=== PATIENT | male | born 1950 | race Caucasian/White ===

== ENCOUNTER → 2019-01-30 | Outpatient (REF) | payer MEDICARE ==
[2019-01-30 11:30] LABS: BASO # 0.1 10^3/uL (0.0-0.2); BASO % 1.6 % (0.0-1.0); EOS # 0.3 10^3/uL (0.0-0.50); EOS % 3.9 % (0.0-3.0); HEMOGLOBIN 17.9 g/dl (13.5-17.5); LYMPH # 2.7 10^3/uL (1.5-4.5); LYMPH % 35.8 % (24.0-44.0); MEAN CORPUSCULAR HEMOGLOBIN 32.6 pg (27.0-33.0); MEAN CORPUSCULAR HGB CONC 34.4 g/dl (32.0-36.5); MEAN CORPUSCULAR VOLUME 94.7 fl (80.0-96.0); MONO # 0.5 10^3/uL (0.0-0.8); MONO % 6.7 % (0.0-5.0); NEUTROPHILS # 3.9 10^3/uL (1.8-7.7); NEUTROPHILS % 51.7 % (36.0-66.0); PLATELET COUNT, AUTOMATED 235 10^3/uL (150-450); RED BLOOD COUNT 5.49 10^6/uL (4.30-6.10); WHITE BLOOD COUNT 7.6 10^3/uL (4.0-10.0)
[2019-01-30 11:43] LABS: ALBUMIN 4.3 GM/DL (3.2-5.2); ALT/SGPT 21 U/L (12-78); BILIRUBIN,TOTAL 0.7 MG/DL (0.2-1.0); BLOOD UREA NITROGEN 9 MG/DL (7-18); CALCIUM LEVEL 9.5 MG/DL (8.8-10.2); CARBON DIOXIDE LEVEL 25 MEQ/L (21-32); CHLORIDE LEVEL 105 MEQ/L (98-107); CHOLESTEROL LEVEL 291 MG/DL (<200); CHOLESTEROL RISK RATIO 5.388 (<5); CREATININE FOR GFR 0.86 MG/DL (0.70-1.30); FREE T4 0.95 NG/DL (0.76-1.46); GLOMERULAR FILTRATION RATE > 60.0 (>49); GLUCOSE, FASTING 91 MG/DL (70-100); HDL CHOLESTEROL 54 MG/DL (>40); LDL CHOLESTEROL 212 MG/DL (<100); NON-HDL-C 237 MG/DL; POTASSIUM SERUM 4.5 MEQ/L (3.5-5.1); SODIUM LEVEL 138 MEQ/L (136-145); TOTAL PROTEIN 7.4 GM/DL (6.4-8.2); TRIGLYCERIDES LEVEL 125 MG/DL (<150)
== END ==
LOC: M SFHCCLAY 08:04
PROVIDERS: ATTEND Nurse Practitioner Family
DX: R03.0 Elevated blood-pressure reading, without diagnosis of hypertension (principal); E07.9 Disorder of thyroid, unspecified; E78.00 Pure hypercholesterolemia, unspecified

== ENCOUNTER → 2019-03-01 | Outpatient (CLI) | payer MEDICARE ==
--- NOTE | 2019-03-01 14:02 | REP ---
REASON: Tobacco abuse. PRIORS: None. As per the protocol, only lung window images were sent to the read station for interpretation. There is no evidence of an abnormal nodule, mass, or opacity. Grossly, the cardiomediastinal silhouette is within normal limits. Grossly, the imaged upper abdomen and imaged osseous structures are within normal limits. IMPRESSION: Lung RADS category 1. No abnormality. Electronically Signed by Kirill Thompson DO 03/01/2019 03:36 P
== END ==
LOC: M RAD 09:25
PROVIDERS: ATTEND Nurse Practitioner Family
DX: Z12.2 Encounter for screening for malignant neoplasm of respiratory organs (principal); F17.210 Nicotine dependence, cigarettes, uncomplicated; R20.2 Paresthesia of skin; R94.31 Abnormal electrocardiogram [ECG] [EKG]
CPT/HCPCS: 36415; 82607; 82746; 93306; G0297

== ENCOUNTER → 2019-03-01 | Outpatient (CLI) | payer MEDICARE ==
[2019-03-01 10:18] LABS: FOLATE 11.5 NG/ML
== END ==
LOC: M LAB 09:09
PROVIDERS: ATTEND Nurse Practitioner Family
DX: R20.2 Paresthesia of skin (principal)

== ENCOUNTER → 2019-03-01 | Outpatient (CLI) | payer MEDICARE ==
--- NOTE | 2019-03-02 19:04 | ECHO ---
DATE OF PROCEDURE: 03/01/2019 Date of : 1950 Age: 68 Gender: Male Height: 71 inches Weight: 168 pounds Body surface area: 1.96 meters squared Outpatient. REFERRING PHYSICIAN: Dr. Sheppard INDICATION: Abnormal EKG. MEASUREMENTS: 2D Measurements: RV: 2.9 cm LV: 3.7 cm Septum: 1.1 cm Posterior wall: 1.1 cm Aortic root: 3.8 cm LA: 3.3 cm LVEF: 70% Doppler Measurements: AV: 1.3 meters per second LVOT: 1.1 meters per second LVOT diameter: 2.1 cm MV-E: 85, A: 100, E/A ratio: 0.9 Early mitral deceleration time: 257 milliseconds E prime: 5, A prime: 10.7, E/E prime ratio: 17 Pulmonary capillary wedge pressure: 16.2 PV: 0.8 meters per second Pulmonary artery acceleration time: 127 milliseconds RVSP: 27 mmHg COMMENTS: Normal sinus rhythm. M-mode and two-dimensional echocardiograph was performed with pulsed, continuous wave, color flow and tissue Doppler studies. Left ventricular wall thickness upper limits of normal with hyperkinetic wall motion. Normal left atrial size but Doppler evidence of an impairment of left ventricular (LV) diastolic function and at least mild elevation in mean left atrial pressure. Normal right heart chamber sizes, motion and estimated pulmonary arterial pressure. Could not visualize his inferior vena cava to further accurately define his central venous pressure. Normal appearing and functioning valvular structures. Aortic root size upper limits of normal. No apparent intracardiac mass or pericardial effusion.
== END ==
LOC: M CARPUL 09:45
PROVIDERS: ATTEND Internal Medicine Cardiovascular Disease
DX: R94.31 Abnormal electrocardiogram [ECG] [EKG] (principal)

== ENCOUNTER 2019-06-19 06:45 | Day surgery (SDC) | payer MEDICARE ==
[~2019-06-19] VITALS: Ht 180.3 cm; Wt 76.2 kg
[~2019-06-19 06:45] MED LIST: ATOR40TA75 PO; NS 1,000 ML IV ONE; SPIR-10 PO
[2019-06-19] MEDS ORDERED: LIDOCAINE 2% INJ 100 MG/5 ML SDV (FOR ANES.) As Ordered ONE (07:37)
[2019-06-19] MEDS ORDERED: PROPOFOL 200 MG/20 ML VIAL As Ordered ONE ×2 (07:37→08:02)
[2019-06-19 08:55] VITALS: BP 148/72
--- NOTE | 2019-06-19 09:11 | ROOR ---
Patient Name: Govind Mena Procedure Date: 06/19/2019 7:29 AM Date of : 1950 Age: 68 Room: [facility] Gender: Male Note Status: Finalized Procedure: Colonoscopy Indications: Screening for colorectal malignant neoplasm, This is the patient's first colonoscopy Providers: Clinton Ty MD Referring MD: Katie Sosa NP Requesting Provider: Medicines: Monitored Anesthesia Care Complications: No immediate complications. Procedure: Pre-Anesthesia Assessment: - Prior to the procedure, a History and Physical was performed, and patient medications and allergies were reviewed. The patient is competent. The risks and benefits of the procedure and the sedation options and risks were discussed with the patient. All questions were answered and informed consent was obtained. Patient identification and proposed procedure were verified by the physician, the nurse and the anesthesiologist in the procedure room. Mental Status Examination: alert and oriented. Airway Examination: normal oropharyngeal airway and neck mobility. CV Examination: regular rate and rhythm. Prophylactic Antibiotics: The patient does not require prophylactic antibiotics. Prior Anticoagulants: The patient has taken no previous anticoagulant or antiplatelet agents. ASA Grade Assessment: II - A patient with mild systemic disease. After reviewing the risks and benefits, the patient was deemed in satisfactory condition to undergo the procedure. The anesthesia plan was to use monitored anesthesia care (MAC). Immediately prior to administration of medications, the patient was re-assessed for adequacy to receive sedatives. The heart rate, respiratory rate, oxygen saturations, blood pressure, adequacy of pulmonary ventilation, and response to care were monitored throughout the procedure. The physical status of the patient was re-assessed after the procedure. The was introduced through the anus and advanced to the cecum, identified by appendiceal orifice and ileocecal valve. The colonoscopy was somewhat difficult due to a tortuous colon. The patient tolerated the procedure well. The quality of the bowel preparation was excellent. Findings: The perianal and digital rectal examinations were normal. A 12 mm polyp was found in the distal ascending colon. The polyp was sessile. The polyp was removed with a hot snare. Resection and retrieval were complete. Estimated blood loss: none. Two sessile polyps were found in the transverse colon. The polyps were 4 to 6 mm in size. These polyps were removed with a hot snare. Resection and retrieval were complete. A 3 mm polyp was found in the transverse colon. The polyp was sessile. The polyp was removed with a jumbo cold forceps. Resection and retrieval were complete. Multiple sessile polyps were found in the rectum. The polyps were 3 to 8 mm in size. Biopsies were taken with a cold forceps for histology. Impression: - One 12 mm polyp in the distal ascending colon, removed with a hot snare. Resected and retrieved. - Two 4 to 6 mm polyps in the transverse colon, removed with a hot snare. Resected and retrieved. - One 3 mm polyp in the transverse colon, removed with a jumbo cold forceps. Resected and retrieved. - Multiple 3 to 8 mm polyps in the rectum. Biopsied. Recommendation: - Discharge patient to home. - Resume previous diet. - Continue present medications. - Await pathology results. - If the pathology report reveals adenomatous tissue, then repeat the colonoscopy for surveillance in 3 years. Clinton Ty MD Clinton Ty MD 06/19/2019 9:11:13 AM Electronically signed by Clinton Ty MD Number of Addenda: 0 Note Initiated On: 06/19/2019 7:29 AM Estimated Blood Loss: Estimated blood loss was minimal.
== END 2019-06-19 09:21 | disposition home or self-care (01) ==
LOC: M OPP 06:45
PROVIDERS: ATTEND Surgery
DX: Z12.11 Encounter for screening for malignant neoplasm of colon (principal); D12.2 Benign neoplasm of ascending colon; D12.3 Benign neoplasm of transverse colon; K62.1 Rectal polyp; F17.210 Nicotine dependence, cigarettes, uncomplicated

== ENCOUNTER → 2019-06-20 | Outpatient (CLI) | payer MEDICARE ==
[~2019-06-20] MED LIST changes: -NS 1,000 ML IV ONE
--- NOTE | 2019-06-20 17:07 | REP ---
CT abdomen and pelvis without IV or oral contrast: History: Abdominal and pelvic swelling, mass and lump. Evaluate for free air post colonoscopy. No comparison imaging. CT findings: Preliminary digital machine try out setter radiograph demonstrates stool in the right colon and mild gaseous distension in the distal transverse colon. there is also a loop of small bowel filled with air in the left mid abdomen. On axial CT images the lung bases are clear. There is no evidence of free intraperitoneal air. No ascites is visible. The liver and spleen are normal size homogeneous in texture. Gallbladder and pancreas show no abnormality. No adrenal lesion is seen. There is an intrarenal calculus at mid position the right kidney measuring 4 mm. No hydronephrosis is seen. Kidneys are otherwise unremarkable. There are dystrophic calcifications in the prostate. Urinary bladder is intact. There is an abnormality in the left colon involving the splenic flexure through mid descending segment. This segment of the left colon is involved with moderate mural thickening and pericolonic fat streaking consistent with inflammation and/or enterocolitis. No focal evidence of intramural hematoma or definite injury. No pneumatosis is visible. No non-contained air is observed. There is no visible diverticulosis. Small and large bowel loops are otherwise unremarkable. There is some stool in the colon distal to the descending segment. Impression: There is an 11 cm segment of mural thickening involving the left colon from splenic flexure through the mid descending segment with pericolonic fat stranding consistent with inflammation or enterocolitis. No evidence of free air to suggest bowel perforation. No evidence of diverticulosis to suggest diverticulitis. Findings were telephoned to the referring provider at the time of the study. 4 mm intrarenal calculus right kidney. Electronically Signed by Jose Bond MD 06/20/2019 04:59 P
== END ==
LOC: M RAD 16:19
PROVIDERS: ATTEND Surgery
DX: R19.00 Intra-abdominal and pelvic swelling, mass and lump, unspecified site (principal); N40.0 Benign prostatic hyperplasia without lower urinary tract symptoms; K63.9 Disease of intestine, unspecified

== ENCOUNTER → 2019-09-12 | Outpatient (CLI) | payer MEDICARE ==
--- NOTE | 2019-09-12 11:57 | REP ---
Soft-tissue ultrasound left upper extremity: History: Palpable lump in the left arm for 2 years. The patient denies significant change in size and reports soreness. Findings: Scanning over the proximal left arm laterally in the area of the patient's lump demonstrates an oval-shaped isoechoic well-defined area of subcutaneous tissue suggesting a lipoma. This measures 1.6 x 1.9 x 0.8 cm. No other soft tissue lesion is seen. Impression: Small isoechoic lesion in the subcutaneous fat consistent with although not diagnostic of lipoma. Clinical followup is advised. Electronically Signed by Jose Bond MD 09/12/2019 05:50 P
== END ==
LOC: M RAD 09:46
PROVIDERS: ATTEND Nurse Practitioner Family
DX: R22.32 Localized swelling, mass and lump, left upper limb (principal)

== ENCOUNTER → 2019-10-23 | Outpatient (REF) | payer MEDICARE ==
[2019-10-23 17:38] LABS: HEMATOCRIT 52.4 % (42.0-52.0); HEMOGLOBIN 17.2 g/dl (13.5-17.5); MEAN CORPUSCULAR HEMOGLOBIN 32.1 pg (27.0-33.0); MEAN CORPUSCULAR HGB CONC 32.8 g/dl (32.0-36.5); MEAN CORPUSCULAR VOLUME 97.9 fl (80.0-96.0); PLATELET COUNT, AUTOMATED 235 10^3/uL (150-450); RED BLOOD COUNT 5.35 10^6/uL (4.30-6.10); WHITE BLOOD COUNT 8.4 10^3/uL (4.0-10.0)
[2019-10-23 18:07] LABS: BLOOD UREA NITROGEN 15 MG/DL (7-18); CALCIUM LEVEL 9.3 MG/DL (8.8-10.2); CARBON DIOXIDE LEVEL 25 MEQ/L (21-32); CHLORIDE LEVEL 104 MEQ/L (98-107); CHOLESTEROL LEVEL 248 MG/DL (<200); CHOLESTEROL RISK RATIO 6.048 (<5); GLOMERULAR FILTRATION RATE > 60.0 (>49); GLUCOSE, FASTING 92 MG/DL (70-100); HDL CHOLESTEROL 41 MG/DL (>40); LDL CHOLESTEROL 163 MG/DL (<100); NON-HDL-C 207 MG/DL; POTASSIUM SERUM 4.3 MEQ/L (3.5-5.1); SODIUM LEVEL 136 MEQ/L (136-145); TRIGLYCERIDES LEVEL 219 MG/DL (<150)
== END ==
LOC: M LABDRAWC 16:02
PROVIDERS: ATTEND Physician Assistant
DX: I10 Essential (primary) hypertension (principal)

== ENCOUNTER → 2019-10-24 | Outpatient (CLI) | payer MEDICARE ==
--- NOTE | 2019-10-24 08:08 | REP ---
Abdominal aorta ultrasound: Comparison is the abdomen/pelvis CT dated 06/20/2019. Abdominal Aortic Measurements are as follows: Proximal 2.5 cm AP 2.8 cm TRV Renal Artery Level 1.7 cm AP 1.8 cm TRV Mid Aorta 1.90 cm AP 1.8 cm TRV Distal Aorta 1.6 cm AP 1.9 cm TRV R Iliac Artery 1.2 cm AP 1.2 cm TRV L Iliac Artery 1.2 cm AP 1.1 cm TRV Impression: There is no abdominal aortic aneurysm. Electronically Signed by Tate Vera MD 10/24/2019 07:59 A
== END ==
LOC: M RAD 07:00
PROVIDERS: ATTEND Physician Assistant
DX: F17.210 Nicotine dependence, cigarettes, uncomplicated (principal); I10 Essential (primary) hypertension

== ENCOUNTER → 2020-02-28 | Outpatient (REF) | payer MEDICARE ==
[2020-02-28 13:11] LABS: BASO # 0.1 10^3/uL (0.0-0.2); BASO % 1.1 % (0.0-1.0); EOS # 0.2 10^3/uL (0.0-0.5); EOS % 3.6 % (0.0-3.0); HEMATOCRIT 47.6 % (42.0-52.0); HEMOGLOBIN 16.4 g/dl (13.5-17.5); LYMPH # 2.6 10^3/uL (1.5-5.0); LYMPH % 42.1 % (24.0-44.0); MEAN CORPUSCULAR HEMOGLOBIN 33.3 pg (27.0-33.0); MEAN CORPUSCULAR HGB CONC 34.5 g/dl (32.0-36.5); MEAN CORPUSCULAR VOLUME 96.7 fl (80.0-96.0); MONO # 0.5 10^3/uL (0.0-0.8); MONO % 8.6 % (0.0-5.0); NEUTROPHILS # 2.7 10^3/uL (1.5-8.5); NEUTROPHILS % 44.3 % (36.0-66.0); PLATELET COUNT, AUTOMATED 236 10^3/uL (150-450); RED BLOOD COUNT 4.92 10^6/uL (4.30-6.10); WHITE BLOOD COUNT 6.2 10^3/uL (4.0-10.0)
[2020-02-28 13:28] LABS: ALBUMIN 3.9 GM/DL (3.2-5.2); ALT/SGPT 33 U/L (12-78); BILIRUBIN,TOTAL 0.8 MG/DL (0.2-1.0); BLOOD UREA NITROGEN 7 MG/DL (7-18); CALCIUM LEVEL 9.5 MG/DL (8.8-10.2); CARBON DIOXIDE LEVEL 32 MEQ/L (21-32); CHLORIDE LEVEL 97 MEQ/L (98-107); CHOLESTEROL LEVEL 162 MG/DL (<200); CHOLESTEROL RISK RATIO 3.176 (<5); FREE T4 1.24 NG/DL (0.76-1.46); GLOMERULAR FILTRATION RATE > 60.0 (>49); GLUCOSE, FASTING 78 MG/DL (70-100); HDL CHOLESTEROL 51 MG/DL (>40); LDL CHOLESTEROL 93 MG/DL (<100); NON-HDL-C 111 MG/DL; POTASSIUM SERUM 4.3 MEQ/L (3.5-5.1); SODIUM LEVEL 135 MEQ/L (136-145); TOTAL PROTEIN 7.3 GM/DL (6.4-8.2); TRIGLYCERIDES LEVEL 90 MG/DL (<150)
== END ==
LOC: M SFHCCLAY 08:04
PROVIDERS: ATTEND Nurse Practitioner Family
DX: R03.0 Elevated blood-pressure reading, without diagnosis of hypertension (principal); E07.9 Disorder of thyroid, unspecified; E78.00 Pure hypercholesterolemia, unspecified

== ENCOUNTER → 2020-05-21 | Outpatient (CLI) | payer MEDICARE ==
--- NOTE | 2020-06-16 10:21 | REP ---
LOW DOSE LUNG SCREENING CT: CLINICAL HISTORY: Smoker. High risk factors. TECHNIQUE: Noncontrast low dose lung screening CT images from the thoracic inlet to the upper abdomen. COMPARISON: 03/01/19 FINDINGS: The lung suther[place] are relatively clear. There is a subtle 5 mm noncalcified nodule in the right middle lobe (image 59) which remains stable. No further consolidation, nodule or mass. No effusion. No pneumothorax. The tracheobronchial tree is patent. The mediastinum demonstrates atherosclerotic disease to the thoracic aorta and coronary arteries along with mild cardiomegaly. IMPRESSION: 1. Lung-RADS 2 examination with 5 mm noncalcified stable nodule in the right middle lobe. Management recommendations include annual low dose CT follow up evaluation. 2. Atherosclerotic disease. MTDD
== END ==
LOC: M RAD 07:58
PROVIDERS: ATTEND Nurse Practitioner Family
DX: F17.210 Nicotine dependence, cigarettes, uncomplicated (principal); R91.1 Solitary pulmonary nodule; I70.90 Unspecified atherosclerosis

== ENCOUNTER → 2021-03-10 | Outpatient (REF) | payer MEDICARE ==
[~2021-03-10] MED LIST changes: +CHLO125TA
[2021-03-10 12:35] LABS: BASO # 0.1 10^3/uL (0.0-0.2); BASO % 1.4 % (0.0-1.0); EOS # 0.2 10^3/uL (0.0-0.5); EOS % 2.7 % (0.0-3.0); HEMATOCRIT 49.6 % (42.0-52.0); HEMOGLOBIN 16.8 g/dl (13.5-17.5); LYMPH # 2.2 10^3/uL (1.5-5.0); LYMPH % 34.2 % (24.0-44.0); MEAN CORPUSCULAR HEMOGLOBIN 32.7 pg (27.0-33.0); MEAN CORPUSCULAR HGB CONC 33.9 g/dl (32.0-36.5); MEAN CORPUSCULAR VOLUME 96.7 fl (80.0-96.0); MONO # 0.5 10^3/uL (0.0-0.8); MONO % 8.1 % (2.0-8.0); NEUTROPHILS # 3.4 10^3/uL (1.5-8.5); NEUTROPHILS % 53.4 % (36.0-66.0); PLATELET COUNT, AUTOMATED 252 10^3/uL (150-450); RED BLOOD COUNT 5.13 10^6/uL (4.30-6.10); WHITE BLOOD COUNT 6.3 10^3/uL (4.0-10.0)
[2021-03-10 13:12] LABS: ALBUMIN 4.3 GM/DL (3.2-5.2); ALT/SGPT 39 U/L (12-78); BILIRUBIN,TOTAL 0.7 MG/DL (0.2-1.0); BLOOD UREA NITROGEN 7 MG/DL (7-18); CALCIUM LEVEL 9.8 MG/DL (8.8-10.2); CARBON DIOXIDE LEVEL 26 MEQ/L (21-32); CHLORIDE LEVEL 103 MEQ/L (98-107); CHOLESTEROL LEVEL 168 MG/DL (<200); CREATININE FOR GFR 0.72 MG/DL (0.70-1.30); FREE T4 1.05 NG/DL (0.76-1.46); GLOMERULAR FILTRATION RATE > 60.0 (>49); GLUCOSE, FASTING 96 MG/DL (70-100); HDL CHOLESTEROL 52 MG/DL (>40); LDL CHOLESTEROL 100 MG/DL (<100); NON-HDL-C 116 MG/DL; POTASSIUM SERUM 4.3 MEQ/L (3.5-5.1); SODIUM LEVEL 135 MEQ/L (136-145); TOTAL PROTEIN 7.5 GM/DL (6.4-8.2); TRIGLYCERIDES LEVEL 80 MG/DL (<150)
== END ==
LOC: M SFHCCLAY 07:25
PROVIDERS: ATTEND Nurse Practitioner Family
DX: E78.49 Other hyperlipidemia (principal); I10 Essential (primary) hypertension; F17.200 Nicotine dependence, unspecified, uncomplicated
CPT/HCPCS: 80053; 80061; 84439; 84443; 85025; G0463

== ENCOUNTER → 2021-03-14 | Outpatient (CLI) | payer MEDICARE | LOC: M LABSMTC 11:25 | PROVIDERS: ATTEND Anesthesiology | DX: Z01.812 Encounter for preprocedural laboratory examination (principal); Z20.822 Contact with and (suspected) exposure to COVID-19 ==

== ENCOUNTER 2021-03-19 06:48 | Day surgery (SDC) | payer MEDICARE ==
[~2021-03-19] VITALS: Ht 180.3 cm; Wt 76.2 kg
[~2021-03-19 06:48] MED LIST changes: +CEFUROXIME 1MG/0.1ML INTRACAMERAL INJ As Ordered ONE; +DUOVISC (0.50ML VISCOAT/0.55ML PROVISC) OPHTH KIT As Ordered ONE; +POVIDONE-IODINE 5% OPHTH PREP SOL 30ML As Ordered ONE
[2021-03-19] MEDS ORDERED: OFLOXACIN 0.3 % (OCUFLOX) OPTH SOL 5ML OS ONE (07:00)
[2021-03-19] MEDS ORDERED: TROPICAMIDE 1% OPHTH SOLN 2ML OS ONE (07:00)
[2021-03-19] MEDS ORDERED: PROPARACAINE 0.5% OPHTH SOL 15ML OS ONE (07:00)
[2021-03-19] MEDS ORDERED: PHENYLEPHRINE 2.5% OPHTH SOL 2ML OS ONE (07:00)
[2021-03-19] MEDS ORDERED: MIDAZOLAM INJ 2MG/2ML VIAL (J2250 PER 1MG) As Ordered ONE (09:43)
[2021-03-19] MEDS ORDERED: fentaNYL 100 MCG/2 ML INJECTION (J3010) As Ordered ONE (09:43)
[2021-03-19] MEDS ORDERED: BSS IRR 500ML/OMIDRIA 4ML IRR BAG (OR ONLY) As Ordered ONE (10:09)
[2021-03-19 11:00] VITALS: BP 175/81
--- NOTE | 2021-03-26 14:41 | RO ---
OPERATIVE NOTE DATE OF OPERATION: 03/19/2021 PREOPERATIVE DIAGNOSIS: 1. Visually significant nuclear sclerotic cataract, left eye. POSTOPERATIVE DIAGNOSIS: 1. Visually significant nuclear sclerotic cataract, left eye. PROCEDURE: 1. Cataract extraction with use of phacoemulsification, and placement of intraocular lens, AU00T0, 22.0 D, left eye. SURGEON: Henry Wood DO PROCESSING ASSOCIATE: ANESTHESIA: Local (Omidria) with MAC. COMPLICATIONS: None POSTOPERATIVE CONDITION: Stable INDICATIONS FOR SURGERY: 1. Blurred vision affecting patient's activities of daily living. DESCRIPTION OF PROCEDURE: The patient was seen in the preoperative area and properly identified. The correct operative eye was identified and marked. The patient received topical anesthetic, antibiotics, and topical dilating drops. The patient was then transferred to the operating room. The correct side was re-identified and a time out was performed. The eye was prepped and draped in a sterile fashion. The eyelids were isolated with Tegaderm tape and the lids were held open with an adjustable speculum. A 1.0 mm paracentesis incision was made. Omidria was then injected into the anterior chamber. Viscoelastic was then injected into the anterior chamber through the paracentesis. Using a 2.4 mm sharp-tipped keratome, the anterior chamber was entered via a temporal clear cornea incision. A continuous curvilinear capsulorrhexis was created with Utrata forceps. Hydrodissection was performed with BSS on a blunt cannula until the nucleus was able to rotate freely. The crystalline lens was phacoemulsified and aspirated. Irrigation/aspiration was used to remove the cortical material Cohesive viscoelastic was placed into the capsular bag to deepen it. The implant was placed into the capsular bag and allowed to unfold. Placement was confirmed by visualizing the anterior capsulorrhexis. Irrigation/aspiration was used to remove the viscoelastic. The clear corneal incision was hydrated with BSS on a blunt cannula. The lens was well positioned. Intracameral antibiotic was injected into the anterior chamber. The incisions were then tested for leaks and found to be negative. The eye was then palpated for appropriate pressure and adjusted accordingly with BSS. The eyelid speculum was then carefully removed. A shield was placed over the eye. The patient tolerated the procedure well and was discharge to the recovery unit in a stable condition.
== END 2021-03-19 11:02 | disposition home or self-care (01) ==
LOC: M SDC 06:48
PROVIDERS: ATTEND Ophthalmology
DX: H25.12 Age-related nuclear cataract, left eye (principal); I10 Essential (primary) hypertension; E78.00 Pure hypercholesterolemia, unspecified; F17.210 Nicotine dependence, cigarettes, uncomplicated; Z79.899 Other long term (current) drug therapy
CPT/HCPCS: 66984; J1097; J2250; J3010; V2632

== ENCOUNTER → 2021-05-29 | Outpatient (CLI) | payer MEDICARE ==
[~2021-05-29] MED LIST changes: -CEFUROXIME 1MG/0.1ML INTRACAMERAL INJ As Ordered ONE; -CHLO125TA; +CHLO125TA PO; -DUOVISC (0.50ML VISCOAT/0.55ML PROVISC) OPHTH KIT As Ordered ONE; -POVIDONE-IODINE 5% OPHTH PREP SOL 30ML As Ordered ONE
--- NOTE | 2021-05-29 09:41 | REP ---
INDICATION: SMOKER. COMPARISON: 05/21/2020. TECHNIQUE: Low dose screening CT chest performed without the use of intravenous contrast. FINDINGS: Lungs: Clear, no infiltrate. There is a stable 5 mm nodule in the right middle lobe. Heart: Not enlarged. Thoracic aorta: No aneurysm. Visualized osseous structures: There are degenerative changes of the spine. IMPRESSION: Category 2, benign low-dose noncontrast CT chest. Stable 5 mm nodule right middle lobe. Recommend follow-up screening CT in 1 year. <Electronically signed by Tate Ag > 05/29/21 0937
== END ==
LOC: M RAD 09:06
PROVIDERS: ATTEND Nurse Practitioner Family
DX: Z12.2 Encounter for screening for malignant neoplasm of respiratory organs (principal); F17.210 Nicotine dependence, cigarettes, uncomplicated; R91.1 Solitary pulmonary nodule

== ENCOUNTER → 2021-06-13 | Outpatient (CLI) | payer MEDICARE | LOC: M LABSMTC 10:07 | PROVIDERS: ATTEND Anesthesiology | DX: Z11.52 Encounter for screening for COVID-19 (principal); Z20.822 Contact with and (suspected) exposure to COVID-19 ==

== ENCOUNTER 2021-06-18 07:16 | Day surgery (SDC) | payer MEDICARE ==
[~2021-06-18] VITALS: Ht 180.3 cm; Wt 74.8 kg
[~2021-06-18 07:16] MED LIST changes: +CYCLOPENTOLATE 1% OPHTH SOLN 2 ML BTL OD SCH; +FLURBIPROFEN 0.03% OPHTH SOLN 2.5 ML OD SCH; +LIDOCAINE 1% SDV 5ML VIAL As Ordered ONE; +LR 1,000 ML IV SCH; +PHENYLEPHRINE 2.5% OPHTH SOL 2ML OD SCH; +TETRACAINE 0.5% OPHTH SOLN 4ML OD SCH
[2021-06-18] MEDS ORDERED: DUOVISC (0.50ML VISCOAT/0.85ML PROVISC) OPHTH KIT As Ordered ONE (07:30)
[2021-06-18] MEDS ORDERED: MAXITROL OPHTH SUSP 5 ML As Ordered ONE (07:31)
[2021-06-18] MEDS ORDERED: fentaNYL 100 MCG/2 ML INJECTION (J3010) As Ordered ONE (09:49)
[2021-06-18] MEDS ORDERED: MIDAZOLAM INJ 2MG/2ML VIAL (J2250 PER 1MG) As Ordered ONE (09:49)
[2021-06-18 11:40] VITALS: BP 129/73
--- NOTE | 2021-06-18 16:12 | ROOPDOC ---
[facility] Report Of Operation Report of Operation PREPROCEDURE DIAGNOSES: Cataract right eye. POSTPROCEDURE DIAGNOSES: Same. PROCEDURE PERFORMED: Cataract extraction with intraocular lens implantation right eye. SURGEON: Domenico Sands MD CRIMINAL INVESTIGATIVE AGENT: None ANESTHESIA: local with intravenous sedation ESTIMATED BLOOD LOSS: None. COMPLICATIONS: None. SPECIMENS REMOVED: None DESCRIPTION OF PROCEDURE: The patient was brought to the operating room and prepped and draped in the usual sterile fashion and an eyelid speculum was inserted in the right eye. A paracentesis was made and the anterior chamber was inflated with non-preserved lidocaine. This was followed by injection of Viscoat. A groove was made in the temporal clear cornea which was tunneled forward with the crescent blade and the anterior chamber was entered with a 2.75 keratome. The cystotome was used to make an incision in the center of the capsule and a continuous curvilinear capsulorhexis was created. The lens was hydrodissected until it was found to rotate freely within the capsular bag. Phacoemulsification was then used to remove the lens in its entirety. Irrigation and aspiration were used to remove residual cortical material. There was some pupillary constriction at this point. The anterior chamber and capsular bag were reinflated with Provisc and a 20.5 diopter [id number] lens was injected into the capsular bag using the Clinton injector. The lens was dialed into place using the Sinskey hook. Irrigation and aspiration were used to remove residual viscoelastic. The wound was stromally hydrated until was found to be watertight and the eye was in an appropriate pressure. The eyelid speculum was removed from the eye and Maxitrol drops were placed over the right eye. The patient was transferred to the recovery room in stable condition and will follow up tomorrow. The total CDE was 15.2. DOMENICO SANDS MD Jun 18, 2021 16:12
== END 2021-06-18 11:51 | disposition home or self-care (01) ==
LOC: M SDC 07:16
PROVIDERS: ATTEND Ophthalmology
DX: H25.11 Age-related nuclear cataract, right eye (principal); I10 Essential (primary) hypertension; E78.5 Hyperlipidemia, unspecified; F17.218 Nicotine dependence, cigarettes, with other nicotine-induced disorders; Z79.899 Other long term (current) drug therapy
CPT/HCPCS: 66984; J2250; J3010; V2632

== ENCOUNTER → 2021-07-01 | Outpatient (REF) | payer MEDICARE ==
[~2021-07-01] MED LIST changes: -CYCLOPENTOLATE 1% OPHTH SOLN 2 ML BTL OD SCH; -FLURBIPROFEN 0.03% OPHTH SOLN 2.5 ML OD SCH; -LIDOCAINE 1% SDV 5ML VIAL As Ordered ONE; -LR 1,000 ML IV SCH; -PHENYLEPHRINE 2.5% OPHTH SOL 2ML OD SCH; -TETRACAINE 0.5% OPHTH SOLN 4ML OD SCH
== END ==
LOC: M LAB REF 09:41
PROVIDERS: ATTEND Surgery
DX: D17.20 Benign lipomatous neoplasm of skin and subcutaneous tissue of unspecified limb (principal)

== ENCOUNTER 2021-07-27 14:02 | Emergency (ER) | payer MEDICARE ==
[~2021-07-27] VITALS: Ht 180.3 cm; Wt 74.1 kg
--- OUTSIDE RECORDS SUMMARY | 2021-07-27 14:09 | CCD | Continuity of Care Document ---
Author Author Govind HILLS PA Organization Unknown Address [address], [address] [place] [address] Phone [phone] Care Team Providers Care [employer] Distributor Supervisor Name Role Phone Katie Sosa AUTM AUTM Unavailable Problems Active Problems Provider Date Essential hypertension Serge Andersen NP Onset: 04/16/2019 Social History Type Date Description Comments Sex Unknown ETOH Use Currently consumes alcohol 2-3 T IMES A WEEK Recreational Drug Use Denies Drug Use Tobacco Use Start: Unknown Patient is a current smoker, smo kes every day 1 PPD for 45 years Allergies and adverse reactions Description No Known Drug Allergies Medications Active Medications SIG Qnty Indications Ordering Provide r Date Atorvastatin Calcium 40mg Tablets 1 qd Unknown Chlorthalidone 25mg Tablets 1/2 tab by mouth Tuesday,tue, tuesday Unknown 00/00/0 000 Spironolactone 25mg Tablets 1/2 tab every day Unknown Immunizations Description No Information Available Vital Signs Date Vital Result Comment 07/08/2021 1:22pm BP Systolic 171 mmHg BP Diastolic 96 mmHg Body Temperature 98.8 F Height 71 inches 5'11" Weight 167.00 lb BMI (Body Mass Index) 23.3 kg/m2 [place] Body Weight 172 lb Weight 75.751 kg BSA (Body Surface Area) 1.95 m2 07/01/2021 11:10am BP Systolic 154 mmHg BP Diastolic 72 mmHg Body Temperature 98.5 F Height 71 inches 5'11" Weight 166.12 lb BMI (Body Mass Index) 23.2 kg/m2 [place] Body Weight 172 lb Weight 75.354 kg BSA (Body Surface Area) 1.95 m2 Results Test Acquired Date Facility Test Result H/L Range Note Laboratory test finding 07/01/2021 [facility] [address] [place] [address] [phone] Pathology Request For Service (SEE NOTE) 1 1 FINAL DIAGNOSIS Mass, left upper arm, excision: Mature fibroadipose tissue, consistent with lipoma. 07/03/2021 - 1120 CLINICAL DIAGNOSIS Lipoma left upper arm 07/02/2021 - 1442 GROSS DIAGNOSIS Received in formalin labeled "left upper arm" consists of one piece of yellow-horton fibroadipose tissue measuring 1.8 x 1.5 x 0.8 cm in aggregate. All in one. -SV 07/02/2021 - 1442 Signed PHANI OLIVERA MD 07/03/2021 1121 Procedures Date Code Description Status 07/01/2021 09223 Excise Benign Lesion 1.1-2CM Adria nk/Arm/Leg Completed 06/10/2021 32247 Office/Outpatient Established Mo d MDM 30-39 Min Completed Medical Devices Description No Information Available Encounters Type Date Location Provider Dx Diagnosis Office Visit 07/08/2021 1:30p [facility] NICK Reyes D17.22 Benign lipomatous neoplasm of skin, subc u of left arm Z48.02 Encounter for removal of sut ures Office Visit 06/10/2021 2:15p [facility] Lorenzo cesar JR, MD D17.20 Benign lipomatous neoplasm of skin, subc u of unsp limb D49.2 Neoplasm of unsp behavior of bone, soft tissue, and skin Assessments Date Code Description Provider 07/08/2021 D17.22 Benign lipomatous ne oplasm of skin and subcutaneous tissue of left arm NICK Arias 07/08/2021 Z48.02 Encounter for removal of sutures NICK Arias 07/01/2021 D17.22 Benign lipomatous ne oplasm of skin and subcutaneous tissue of left arm Lorenzo Barker JR, MD 06/10/2021 D17.20 Benign lipomatous ne oplasm of skin and subcutaneous tissue of unspecified limb Lorenzo Barker JR, MD 06/10/2021 D49.2 Neoplasm of unspecif ied behavior of bone, soft tissue, and skin Lorenzo Barker JR, MD Plan of Treatment No Information Available Functional Status Description No Information Available Mental Status Description No Information Available Referrals Description No Information Available
--- OUTSIDE RECORDS SUMMARY | 2021-07-27 14:10 | CCD ---
Author Author [facility] Organization [facility] Address Unknown Phone Unavailable Care Team Providers Care Encephalographer Name Role Phone ENIO, L AKASH PA Unavailable Unavailable ENIO, L AKASH PA Unavailable Unavailable ENIO, L AKASH PA Unavailable Unavailable ENIO, L AKASH PA Unavailable Unavailable ENIO, L AKASH PA Unavailable Unavailable ENIO, L AKASH PA Unavailable Unavailable ENIO, L AKASH PA Unavailable Unavailable ENIO, L AKASH PA Unavailable Unavailable ENIO, L AKASH PA Unavailable Unavailable ENIO, L AKASH PA Unavailable Unavailable ENIO, L AKASH PA Unavailable Unavailable ENIO, L AKASH PA Unavailable Unavailable ENIO, L AKASH PA Unavailable Unavailable ENIO, L AKASH PA Unavailable Unavailable ENIO, L AKASH PA Unavailable Unavailable ENIO, L AKASH PA Unavailable Unavailable Lizama, L Allison RPA Unavailable Unavailable Lizama, L Allison RPA Unavailable Unavailable Lizama, L Allison RPA Unavailable Unavailable Lizama, L Allison RPA Unavailable Unavailable Lizama, L Allison RPA Unavailable Unavailable Lizama, L Allison RPA Unavailable Unavailable Lizama, L Allison RPA Unavailable Unavailable Lizama, L Allison RPA Unavailable Unavailable Lizama, L Allison RPA Unavailable Unavailable Lizama, L Allison RPA Unavailable Unavailable Lizama, L Allison RPA Unavailable Unavailable Lizama, L Allison RPA Unavailable Unavailable Lizama, L Allison RPA Unavailable Unavailable Lizama, L Allison RPA Unavailable Unavailable Lizama, L Allison RPA Unavailable Unavailable Lizama, L Allison RPA Unavailable Unavailable Lizama, L Allison RPA Unavailable Unavailable Lizama, L Allison RPA Unavailable Unavailable Lizama, L Allison RPA Unavailable Unavailable Lizama, L Allison RPA Unavailable Unavailable Lizama, L Allison RPA Unavailable Unavailable Lizama, L Allison RPA Unavailable Unavailable Lizama, L Lalison RPA Unavailable Unavailable Lizama, L Allison RPA Unavailable Unavailable Lizama, L Allison RPA Unavailable Unavailable Lizama, L Allison RPA Unavailable Unavailable Lizama, L Allison RPA Unavailable Unavailable Lizama, L Allison RPA Unavailable Unavailable Lizama, L Allison RPA Unavailable Unavailable Lizama, L Allison RPA Unavailable Unavailable Lizama, L Allison RPA Unavailable Unavailable Lizama, L Allison RPA Unavailable Unavailable Taty Barker JR, MD Unavailable Unavailable Taty Barker JR, MD Unavailable Unavailable Taty Barker JR, MD Unavailable Unavailable Taty Barker JR, MD Unavailable Unavailable Taty Barker JR, MD Unavailable Unavailable Taty Barker JR, MD Unavailable Unavailable Taty Barker JR, MD Unavailable Unavailable Taty Barker JR, MD Unavailable Unavailable Taty Barker JR, MD Unavailable Unavailable Taty Barker JR, MD Unavailable Unavailable Taty Barker JR, MD Unavailable Unavailable Taty Barker JR, MD Unavailable Unavailable Taty Barker JR, MD Unavailable Unavailable Taty Barker JR, MD Unavailable Unavailable Taty Barker JR, MD Unavailable Unavailable Taty Barker JR, MD Unavailable Unavailable Taty Barker JR, MD Unavailable Unavailable Taty Barker JR, MD Unavailable Unavailable Taty Barker JR, MD Unavailable Unavailable Taty Barker JR, MD Unavailable Unavailable Taty Barker JR, MD Unavailable Unavailable Taty Barker JR, MD Unavailable Unavailable Taty Barkre JR, MD Unavailable Unavailable Taty Barker JR, MD Unavailable Unavailable Taty Barker JR, MD Unavailable Unavailable Taty Barker JR, MD Unavailable Unavailable Taty Barker JR, MD Unavailable Unavailable Taty Barker JR, MD Unavailable Unavailable Taty Barker JR, MD Unavailable Unavailable Taty Barker JR, MD Unavailable Unavailable Taty Barker JR, MD Unavailable Unavailable Mj JR, J Lorenzo MD Unavailable Unavailable Mj JR, J Lorenzo MD Unavailable Unavailable Mj JR, J Lorenzo MD Unavailable Unavailable Mj JR, J Lorenzo MD Unavailable Unavailable Mj JR, J Lorenzo MD Unavailable Unavailable Mj JR, J Lorenzo MD Unavailable Unavailable Mj JR, J Lorenzo MD Unavailable Unavailable Mj JR, J Lorenzo MD Unavailable Unavailable Mj JR, J Lorenzo MD Unavailable Unavailable Mj JR, J Lorenzo MD Unavailable Unavailable Mj JR, J Lorenzo MD Unavailable Unavailable Mj JR, J Lorenzo MD Unavailable Unavailable Mj JR, J Lorenzo MD Unavailable Unavailable Mj JR, J Lorenzo MD Unavailable Unavailable Mj JR, J Lorenzo MD Unavailable Unavailable Mj JR, J Lorenzo MD Unavailable Unavailable Mj JR, J Lorenzo MD Unavailable Unavailable Mj JR, J Lorenzo MD Unavailable Unavailable Mj JR, J Lorenzo MD Unavailable Unavailable Mj JR, J Lorenzo MD Unavailable Unavailable Mj JR, J Lorenzo MD Unavailable Unavailable Mj JR, J Lorenzo MD Unavailable Unavailable Mj JR, J Lorenzo MD Unavailable Unavailable REBA, A CIELO DO Unavailable Unavailable REBA, A CIELO DO Unavailable Unavailable REBA, A CIELO DO Unavailable Unavailable REBA, A CIELO DO Unavailable Unavailable REBA, A CIELO DO Unavailable Unavailable REBA, A CIELO DO Unavailable Unavailable REBA, A CIELO DO Unavailable Unavailable REBA, A CIELO DO Unavailable Unavailable REBA, A CIELO DO Unavailable Unavailable REBA, A CIELO DO Unavailable Unavailable REBA, A CIELO DO Unavailable Unavailable REBA, A CIELO DO Unavailable Unavailable REBA, A CIELO DO Unavailable Unavailable REBA, A CIELO DO Unavailable Unavailable REBA, A CIELO DO Unavailable Unavailable REBA, A CIELO DO Unavailable Unavailable REBA, A CIELO DO Unavailable Unavailable REBA, A CIELO DO Unavailable Unavailable REBA, A CIELO DO Unavailable Unavailable REBA, A CIELO DO Unavailable Unavailable REBA, A CIELO DO Unavailable Unavailable REBA, A CIELO DO Unavailable Unavailable Re-disclosure Warning The records that you are about to access may contain information from federally-assisted alcohol or drug abuse programs. If such information is present, then the following federally mandated warning applies: This information has been disclosed to you from records protected by federal confidentiality rules (42 CFR part 2). The federal rules prohibit you from making any further disclosure of this information unless further disclosure is expressly permitted by the written consent of the person to whom it pertains or as otherwise permitted by 42 CFR part 2. A general authorization for the release of medical or other information is NOT sufficient for this purpose. The Federal rules restrict any use of the information to criminally investigate or prosecute any alcohol or drug abuse patient.The records that you are about to access may contain highly sensitive health information, the redisclosure of which is protected by Article 27-F of the [facility] Public Health law. If you continue you may have access to information: Regarding HIV / AIDS; Provided by facilities licensed or operated by the [facility] Office of Mental Health; or Provided by the [facility] Office for People With Developmental Disabilities. If such information is present, then the following [facility] mandated warning applies: This information has been disclosed to you from confidential records which are protected by state law. State law prohibits you from making any further disclosure of this information without the specific written consent of the person to whom it pertains, or as otherwise permitted by law. Any unauthorized further disclosure in violation of state law may result in a fine or senior care sentence or both. A general authorization for the release of medical or other information is NOT sufficient authorization for further disc losure. Allergies and Adverse Reactions Type Description Substance Reaction Status Data Source(s ) Allergy to substance No Known Allergies No known allergies (situation ) [facility] ([facility]) Allergy to substance No Known Allergies No known allergies (situation ) [facility] ([facility]) Allergy to substance No Known Allergies No known allergies (situation ) [place] ([facility]) Allergy to substance No Known Allergies No known allergies (situation ) [place] ([facility]) Allergy to substance No Known Allergies No known allergies (situation ) [place] ([facility]) Family History Family Member Name Family Member Gender Family Member Status Date o f Status Description Data Source(s) Unknown Male Problem [facility] ([facility]) Encounters Encounter Providers Location Date Indications Data Source(s ) Office Visit Attender: Allison Joshi/Millie/Bryson/Jimmie pearl 07/08/2021 01:30:00 PM EDT [facility] ([facility] Outpatient Attender: Lorenzo Joshi/Millie/Bryson/Rein dl 06/10/2021 02:15:00 PM EDT [facility] ([facility] [place] [address] [facility] [address] 06/08/2021 12:00:00 AM EDT eCW1 ([facility]) <td ID="encounterTypeDescriptionID0">3-4 Week Post-op</td><td>Cielo Wood DO</td><td>Jean Lane [facility]</td><td>04/16/2021</td><td>8:11AM</td><td>8:43AM</td><td></td>Outpatient Attender: CIELO Devine MD [facility] 04/16/2021 08:11:00 AM EDT - 04/16/2021 08:43:00 AM EDT [facility] ([facility]el [facility]) Unknown [address] [facility] [facility] [address] 04/07/2021 12:00:00 AM EDT eCW1 ([facility]) <td ID="encounterTypeDescriptionID1">[address]</td><td>Cielo Wood DO</td><td>Jean Lane MD [facility]</td><td>03/26/2021</td><td>9:02AM</td><td>10:30AM</td><td><content ID="encounterDiagnosisID1-0">Pseudophakia</content></td>Outpatient Attender: CIELO Devine MD [facility] 03/26/2021 09:02:00 AM EDT - 03/26/2021 10:30:00 AM EDT PseudophakiaPseudophakia [facility] (Jean greer MD [facility]) Pseudophakia Pseudophakia Outpatient<td ID="encounterTypeDescripti onID2">Extracapsular cataract removal w/IOL implant</td><td>Cielo Wood DO</td><td>[facility]</td><td>03/19/2021</td><td>6:38AM</td><td>6:38AM</td><td></td> Attender: CIELO WOOD DO [facility] 03/19/2021 06:38:00 AM EDT - 03/19/2021 06:38:00 AM EDT [facility] ([facility] greer [facility]) <td ID="encounterTypeDescriptionID3">[address] PREOP FOR SURGERY</td><td>Cielo Wood DO</td><td>Jean Lane MD [facility]</td><td>03/12/2021</td><td>7:19AM</td><td>8:09AM</td><td><content ID="encounterDiagnosisID3-0">Cataract Senile Nuclear</content></td>Outpatient Attender: CIELO Devine MD [facility] 03/12/2021 07:19:00 AM EDT - 03/12/2021 08:09:00 AM EDT Cataract Senile NuclearCataract Senile NuclearCataract Senile NuclearCataract Senile NuclearCataract Senile Nuclear [facility] ([facility]el [facility]) 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 Office Visit, Est Pt., Level 2 FC [address] [place] [address] 03/10/2021 12:00:00 AM EDT eCW1 ([facility]) Outpatient<td ID="encounterTypeDescripti onID4">NEW PATIENT WITH REFERRAL</td><td>Cielo Wood DO</td><td>Jean Lane MD [facility]</td><td>03/09/2021</td><td>1:41PM</td><td>4:00PM</td><td><content ID="encounterDiagnosisID4-0">Dry Eye Syndrome</content>, <content ID="encounterDiagnosisID4-1">Cataract Senile Nuclear</content>, <content ID="encounterDiagnosisID4-2">Vitreous Disorders Degeneration</content></td> Attender: CIELO Devine MD [facility] 03/09/2021 01:41:00 PM EDT - 03/09/2021 04:00:00 PM EDT Vitreous Disorders DegenerationCataract Senile NuclearDry Eye SyndromeVitreous Disorders DegenerationCataract Senile NuclearDry Eye SyndromeVitreous Disorders DegenerationCataract Senile NuclearDry Eye SyndromeVitreous Disorders DegenerationCataract Senile NuclearDry Eye SyndromeVitreous Disorders DegenerationCataract Senile NuclearDry Eye Syndrome [facility] ([facility]) Vitreous Disorders Degeneration Cataract Senile Nuclear Dry Eye Syndrome Vitreous Disorders Degeneration Cataract Senile Nuclear Dry Eye Syndrome Vitreous Disorders Degeneration Cataract Senile Nuclear Dry Eye Syndrome Vitreous Disorders Degeneration Cataract Senile Nuclear Dry Eye Syndrome Vitreous Disorders Degeneration Cataract Senile Nuclear Dry Eye Syndrome Unknown [address] [facility] [address] 12/31/2020 12:00:00 AM EDT eC ([facility]) Outpatient Attender: AKASH ROMREO Main Office 12/18/2020 1 1:15:00 AM EDT [facility]GUR[facility] ([facility]) Immunizations Vaccine Date Status Description Data Source(s) COVID-19 VACCINE Moderna 10/21/2020 12:00:00 AM EST completed [facility] Vaccine Series Complete: YESThis Data wa s Submitted to [facility] Via [email or web address]. COVID-19 VACCINE Moderna 09/23/2020 12:00:00 AM EST completed [facility] Vaccine Series Complete: NOThis Data was Submitted to [facility] Via [email or web address]. Medications Medication Brand Name Start Date Product Form Dose Route Admi nistrative Instructions Pharmacy Instructions Status Indications Reaction Description Data Source(s) BromSite 0.075% Ophthalmic Solution BromSite 0.075% Ophthalm ic Solution 03/12/2021 12:00:00 AM EDT active bromfenac 0.75 MG/ML Ophthalmic Solution [Bromsite] [facility] ([facility]) Inveltys 1% Ophthalmic Suspension Inveltys 1% Ophthalmic Maria pension 03/12/2021 12:00:00 AM EDT active loteprednol etabonate 10 MG/ML Ophthalmic Suspension [Inveltys] [facility] ([facility]el [facility]) moxifloxacin 5 MG/ML Ophthalmic Solution Moxifloxacin HCl 0.5% Ophthalmic Solution Moxifloxacin HCl 0.5% Ophthalmic Solution 03/12/2021 12:00:00 AM EDT active moxifloxacin 5 MG/ML Oph thalmic Solution [facility] ([facility]) Atorvastatin 40 MG Oral Tablet Atorvastatin 40 MG Oral Table t 03/09/2021 12:00:00 AM EDT 1 active Atorvast atin [facility] ([facility]) Chlorthalidone 25 MG Oral Tablet Chlorthalidone 25 MG Oral T ablet 03/09/2021 12:00:00 AM EDT active chlortha lidone 25 MG Oral Tablet [facility] ([facility]) Spironolactone 25 MG Oral Tablet Spironolactone 25 MG Oral T ablet 03/09/2021 12:00:00 AM EDT 1 active Spironol actone [facility] ([facility]el [facility]) Blood Pressure Monitor/Auto Arm 12/18/2020 12:00:00 AM EDT active MED[facility] ([facility]) Insurance Providers Payer name Policy type / Coverage type Policy ID Covered democrat ID Covered democrat's relationship to borjas Policy Borjas Plan Information MEDICARE [id number] SP [id number] AARP HE[employer] CARE OPTIONS [id number] SP [id number] Medicare Part B of [facility] Other 0 [id number] Self 0 Medicare Part B of [facility] Other 0 [id number] Self 0 Medicare Part B of [facility] Other 0 [id number] Self 0 Medicare Part B of [facility] Other 0 [id number] Self 0 Medicare Part B of [facility] Other 0 [id number] Self 0 AARP O [id number] S [id number] MEDICARE C [id number] S [id number] [employer] Options [place] Part B [id number] Self [id number] Medicare (Part B) Medicare Primary [id number] Self [id number] ANS-Medicare Part [id number] ANSI-Commercial [id number] MEDICARE [id number] SP [id number] [employer] Options [facility] Part B [id number] Self [id number] Medicare (Part B) Medicare Primary [id number] Self [id number] [employer] Options [facility] Part B [id number] Self [id number] Medicare (Part B) Medicare Primary [id number] Self [id number] Problems, Conditions, and Diagnoses Code Display Name Description Problem Type Effective Dates Data Source(s) E78.49 Hyperlipidemia Other hyperlipidemia Problem 06/08/2021 12:00:00 AM EDT eCW1 ([facility]) 379.21 Vitreous Disorders Degeneration Vitreous Disorders Deg eneration Problem 03/09/2021 12:00:00 AM EDT [facility] ([facility]el [facility]) 375.15 Dry Eye Syndrome Dry Eye Syndrome Problem 03/09/2021 12 :00:00 AM EDT [facility] ([facility]) 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 Proble m 03/09/2021 12:00:00 AM EDT [facility] ([facility]) 379.21 Vitreous Disorders Degeneration Vitreous Disorders Deg eneration Problem 03/09/2021 12:00:00 AM EDT [facility] ([facility]el [facility]) 375.15 Dry Eye Syndrome Dry Eye Syndrome Problem 03/09/2021 12 :00:00 AM EDT [facility] ([facility]el [facility]) 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 Proble m 03/09/2021 12:00:00 AM EDT [facility] ([facility]) 379.21 Vitreous Disorders Degeneration Vitreous Disorders Deg eneration Problem 03/09/2021 12:00:00 AM EDT [facility] ([facility]) 375.15 Dry Eye Syndrome Dry Eye Syndrome Problem 03/09/2021 12 :00:00 AM EDT [facility] ([facility]) 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 Proble m 03/09/2021 12:00:00 AM EDT [facility] ([facility]) 379.21 Vitreous Disorders Degeneration Vitreous Disorders Deg eneration Problem 03/09/2021 12:00:00 AM EDT [facility] ([facility]) 375.15 Dry Eye Syndrome Dry Eye Syndrome Problem 03/09/2021 12 :00:00 AM EDT [facility] ([facility]) 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 Proble m 03/09/2021 12:00:00 AM EDT [facility] ([facility]) 379.21 Vitreous Disorders Degeneration Vitreous Disorders Deg eneration Problem 03/09/2021 12:00:00 AM EDT [facility] ([facility]) 375.15 Dry Eye Syndrome Dry Eye Syndrome Problem 03/09/2021 12 :00:00 AM EDT [facility] ([facility]) 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 Proble m 03/09/2021 12:00:00 AM EDT [facility] ([facility]el [facility]) H25.9 [id number] Age-related cataract of both eyes, unspecified age-related cataract type Problem 01/07/2021 12:00:00 AM EDT eCW1 ([facility]) Z71.3 Dietary management surveillance Dietary management meg veillance Problem 12/18/2020 12:00:00 AM EDT MEDENT ([facility]) E78.2 Mixed hyperlipidemia Mixed hyperlipidemia Problem 12/18/2020 12:00:00 AM EDT MED[facility] ([facility]) Surgeries/Procedures Procedure Description Date Indications Data Source(s) Excise Benign Lesion 1.1-2CM Trunk/Arm/Leg 07/01/2021 12:00:00 AM EDT MEDENT ([facility], ) OFFICE OUTPATIENT VISIT 25 MINUTES 06/10/2021 12:00:00 AM EDT MEDENT ([facility], ) Extracapsular extraction of lens (procedure) History o f extracapsular cataract extraction PCIOL OS by Dr. Wood 03/19/2021 04/16/2021 12:00:00 AM EDT [facility] ([facility]el [facility]) Extracapsular extraction of lens (procedure) History o f extracapsular cataract extraction PCIOL OS by Dr. Wood 03/19/2021 03/26/2021 12:00:00 AM EDT [facility] (Jean Nagel MD [facility]) Extracapsular cataract removal with intraocular lens i mplant (Left side) Extracapsular cataract removal with intraocular lens implant (Left side) 03/19/2021 12:00:00 AM EDT [facility] (Jean greer MD [facility]) No surgical / procedural history No surgical / procedural hi story 03/12/2021 12:00:00 AM EDT [facility] ([facility] Nagel [facility]) Intermediate Eye Exam Established Patient (Signi/Sep E juan a. & Man.) Intermediate Eye Exam Established Patient (Signi/Sep Eval. & Man.) 03/12/2021 12:00:00 AM EDT [facility] ([facility]el [facility]) OPH BMTRY PRTL COHER INTRFRMTRY IO LENS PWR SHELBI Ophtha lmic biometry - IOL Master with IOL calculation (Left side, WAIVER OF LIABILITY ON FILE (ABN)) 03/12/2021 12:00:00 AM EDT [facility] (Jean Nagel [facility]) OPH BMTRY PRTL COHER INTRFRMTRY IO LENS PWR SHELBI Ophtha lmic biometry - IOL Master with IOL calculation (TC, 26, LT, GA) 03/12/2021 12:00:00 AM EDT [facility] (Jean Nagel MD [facility]) Intermediate Eye Exam Established Patient (25) Interme diate Eye Exam Established Patient (25) 03/12/2021 12:00:00 AM EDT [facility] (Bryant Nagel MD [facility]) Medical Eye Exam Medical Eye Exam 03/09/2021 12:00:00 AM EDT [facility] (Jean Nagel MD [facility]) Medical Eye Exam Medical Eye Exam 03/09/2021 12:00:00 AM EDT [facility] (Jean Nagel MD [facility]) ECG ROUTINE ECG W/LEAST 12 LDS W/I&R 12/18/2020 12:00: 00 AM EDT [facility] ([facility]) Results ID Date Data Source [id number] 07/01/2021 11:39:00 AM EDT MEDENT ([facility], ) Name Value Range Interpretation Code Description Data Vivi rce(s) Supporting Document(s) Surgical pathology study Laboratory test result MEDENT ([facility], ) FINAL DIAGNOSIS Mass, left upper arm, excision: Mature fibroadipose tissue, consistent with lipoma. 07/03/20211120 CLINICAL DIAGNOSIS Lipoma left upper arm 07/02/20211442 GROSS DIAGNOSIS Received in formalin labeled "left upper arm" consists of one piece of yellow-horton fibroadipose tissue measuring 1.8 x 1.5 x 0.8 cm in aggregate. All in one. -SV 07/02/2021 - 1442 Signed PHANI OLIVERA MD 07/03/20211120 ID Date Data Source [id number] 06/13/2021 10:00:00 AM EDT [facility] Name Value Range Interpretation Code Description Data Vivi rce(s) Supporting Document(s) SARS-CoV-2 (COVID-19) RNA [Presence] in Respiratory specimen by MICHELLE with probe detection Not Detected [facility] This lab was ordered by [facility] and reported by [email or web address] ID Date Data Source [id number] 03/14/2021 09:15:00 AM [facility] Name Value Range Interpretation Code Description Data Vivi rce(s) Supporting Document(s) SARS-CoV-2 (COVID-19) RNA [Presence] in Respiratory specimen by MICHELLE with probe detection Not Detected [facility] This lab was ordered by [facility] and reported by [email or web address] ID Date Data Source LIPID PANEL (CARDIAC RISK) 03/10/2021 12:00:00 AM EDT eCW1 ( [facility]) Name Value Range Interpretation Code Description Data Vivi rce(s) Supporting Document(s) Cholesterol [Moles/volume] in Serum or Plasma 168 <200 CHOLESTEROL LEVEL eCW1 ([facility]) Triglyceride [Mass/volume] in Serum or Plasma by calculation 80 <150 TRIGLYCERIDES LEVEL eCW1 ([facility]) 3.230 <5 CHOLESTEROL RISK RATIO eCW1 ([facility]) Cholesterol in HDL [Moles/volume] in Serum or Plasma 52 >40 HDL CHOLESTEROL eCW1 ([facility]) 116 NON-HDL-C eCW1 ([facility]) Cholesterol in LDL [Mass/volume] in Serum or Plasma by calculation 100 <100 LDL CHOLESTEROL eCW1 ([facility]) ID Date Data Source FREE T4 & TSH PANEL 03/10/2021 12:00:00 AM EDT eCW1 ([facility]) Name Value Range Interpretation Code Description Data Vivi rce(s) Supporting Document(s) 1.05 0.76-1.46 FREE T4 eCW1 ([facility]) 2.940 0.358-3.740 THYROID STIMULATING HORM ONE eCW1 ([facility]) ID Date Data Source Comprehensive Metabolic Profile (CMP) 03/10/2021 12:00:00 AM EDT eCW1 ([facility]) Name Value Range Interpretation Code Description Data Vivi rce(s) Supporting Document(s) 7 7-18 BLOOD UREA NITROGEN eCW1 ([facility]) 0.72 0.70-1.30 CREATININE FOR GFR eCW1 ([facility]) 96 70-100 GLUCOSE, FASTING eCW1 ([facility]) 4.3 3.5-5.1 POTASSIUM SERUM eCW1 ([facility]) > 60.0 >49 GLOMERULAR FILTRATION RATE eCW 1 ([facility]) 135 136-145 SODIUM LEVEL eCW1 ([facility]) 9.8 8.8-10.2 CALCIUM LEVEL eCW1 ([facility]) 26 21-32 CARBON DIOXIDE LEVEL eCW1 ([facility]) 103 98-107 CHLORIDE LEVEL eCW1 ([facility]) 30 7-37 AST/SGOT eCW1 ([facility]) 7.5 6.4-8.2 TOTAL PROTEIN eCW1 ([facility]) 0.7 0.2-1.0 BILIRUBIN,TOTAL eCW1 ([facility]) 64 45-117 ALKALINE PHOSPHATASE eCW1 ([facility]) 39 12-78 ALT/SGPT eCW1 ([facility]) 4.3 3.2-5.2 ALBUMIN eCW1 ([facility]) 1.3 ALBUMIN/GLOBULIN RATIO eCW1 ([facility]) ID Date Data Source CBC with Differential 03/10/2021 12:00:00 AM EDT eCW1 ([facility]) Name Value Range Interpretation Code Description Data Vivi rce(s) Supporting Document(s) 6.3 4.0-10.0 WHITE BLOOD COUNT eCW1 ([facility]) 16.8 13.5-17.5 HEMOGLOBIN eCW1 ([facility]) 5.13 4.30-6.10 RED BLOOD COUNT eCW1 ([facility]) 32.7 27.0-33.0 MEAN CORPUSCULAR HEMOGLOB IN eCW1 ([facility]) 96.7 80.0-96.0 MEAN CORPUSCULAR VOLUME e CW1 ([facility]) 49.6 42.0-52.0 HEMATOCRIT eCW1 ([facility]) 53.4 36.0-66.0 NEUTROPHILS % eCW1 ([facility]) 33.9 32.0-36.5 MEAN CORPUSCULAR HGB CONC eCW1 ([facility]) 252 150-450 PLATELET COUNT, AUTOMATED eCW1 ([facility]) 14.0 11.5-14.5 RED CELL DISTRIBUTION WID TH eCW1 ([facility]) 8.1 2.0-8.0 MONO % eCW1 ([facility]) 2.7 0.0-3.0 EOS % eCW1 ([facility]) 1.4 0.0-1.0 BASO % eCW1 ([facility]) 34.2 24.0-44.0 LYMPH % eCW1 ([facility]) 0.5 0.0-0.8 MONO # eCW1 ([facility]) 2.2 1.5-5.0 LYMPH # eCW1 ([facility]) 3.4 1.5-8.5 NEUTROPHILS # eCW1 ([facility]) 0.1 0.0-0.2 BASO # eCW1 ([facility]) 0.2 0.0-0.5 EOS # eCW1 ([facility]) Procedure Social History Code Duration Value Status Description Data Source(s ) Smoking 06/08/2021 12:00:00 AM EDT Current Smoker completed Curre nt Smoker eCW1 ([facility]) Smoking 03/12/2021 08:29:30 AM EDT Smokes tobacco daily (findi ng) completed Smokes tobacco daily (finding) TAWNYA (Jean Nagel MD [facility]) Smoking 03/12/2021 08:26:41 AM EDT Smokes tobacco daily (findi ng) completed Smokes tobacco daily (finding) TAWNYA (Jean Nagel MD [facility]) Smoking 03/10/2021 12:00:00 AM EDT Current Smoker completed Curre nt Smoker eCW1 ([facility]) Smoking 03/10/2021 12:00:00 AM EDT Current Smoker completed Curre nt Smoker eCW1 ([facility]) Vital Signs ID Date Data Source UNK Name Value Range Interpretation Code Description Data Source(s) Body height 71 [in_i] 71 [in_i] [facility] ([facility]) 5'11" [place] body weight 172 [lb_av] 172 [lb_av] MEDEN T ([facility]) Body weight 75.751 kg 75.751 kg [facility] ([facility]) Body surface area Derived from formula 1.95 m2 1.95 m2 [facility] ([facility]) Body mass index (BMI) [Ratio] 23.3 kg/m2 23.3 k g/m2 [facility] ([facility]) Systolic blood pressure 171 mm[Hg] 171 mm[Hg] [facility] Diastolic blood pressure 96 mm[Hg] 96 mm[Hg] [facility] ([facility]) Body temperature 98.8 [degF] 98.8 [degF] [facility] ([facility]) Body weight 167.00 [lb_av] 167.00 [lb_av] MEDEN T ([facility]) Body mass index (BMI) [Ratio] 23.2 kg/m2 23.2 k g/m2 [facility] ([facility]) Systolic blood pressure 154 mm[Hg] 154 mm[Hg] [facility] Diastolic blood pressure 72 mm[Hg] 72 mm[Hg] [facility] ([facility]) Body temperature 98.5 [degF] 98.5 [degF] [facility] ([facility]) Body height 71 [in_i] 71 [in_i] [facility] ([facility]) 5'11" Body weight 166.12 [lb_av] 166.12 [lb_av] MEDEN T ([facility]) [place] body weight 172 [lb_av] 172 [lb_av] MEDEN T ([facility]) Body weight 75.354 kg 75.354 kg [facility] ([facility], ) Body surface area Derived from formula 1.95 m2 1.95 m2 [facility] ) Body weight 169.8 [lb_av] 169.8 [lb_av] eCW1 ([facility]) Body weight 77.02 kg 77.02 kg eCW1 ([facility]) Body height 71 [in_i] 71 [in_i] eCW1 ([facility]) Body mass index (BMI) [Ratio] 23.68 kg/m2 23.68 kg/m2 eCW1 ([facility]) Heart rate 59 /min 59 /min eCW1 ([facility]) Respiratory rate 20 /min 20 /min eCW1 ([facility]) Body temperature 97.8 [degF] 97.8 [degF] eCW1 ( [facility]) Systolic blood pressure 130 mm[Hg] 130 mm[Hg] e CW1 ([facility]) Diastolic blood pressure 82 mm[Hg] 82 mm[Hg] eCW1 ([facility]) Body weight 167 [lb_av] 167 [lb_av] eCW1 ([facility]) Body height 71 [in_i] 71 [in_i] eCW1 ([facility]) Body mass index (BMI) [Ratio] 23.29 kg/m2 23.29 kg/m2 eCW1 ([facility]) Heart rate 65 /min 65 /min eCW1 ([facility]) Respiratory rate 18 /min 18 /min eCW1 ([facility]) Body temperature 98.5 [degF] 98.5 [degF] eCW1 ( [facility]) Systolic blood pressure 132 mm[Hg] 132 mm[Hg] e CW1 ([facility]) Diastolic blood pressure 82 mm[Hg] 82 mm[Hg] eCW1 ([facility]) Systolic blood pressure--sitting 142 mm[Hg] 142 mm[Hg] MEDENT ([facility]) Ra, large cuff Diastolic blood pressure--sitting 86 mm[Hg] 86 mm[Hg] MEDENT ([facility]) Ra, large cuff Body weight 166.00 [lb_av] 166.00 [lb_av] SATINDER T ([facility]) Body height 70 [in_i] 70 [in_i] MEDGURMEET ([facility]) 5'10" Body mass index (BMI) [Ratio] 23.8 kg/m2 23.8 k g/m2 [facility] ([facility]) Heart rate 66 /min 66 /min [facility] Patient Treatment Plan of Care Planned Activity Planned Date Details Description Data Source (s) Inveltys 1% Ophthalmic Suspension 03/12/2021 12:00:00 AM EDT TAWNYA (Jean Nagel MD [facility]) BromSite 0.075% Ophthalmic Solution 03/12/2021 12:00:00 AM EDT TAWNYA (Jean Nagel MD [facility]) moxifloxacin 5 MG/ML Ophthalmic Solution 03/12/2021 12:00:00 AM EDT TAWNYA (Jean Nagel MD [facility])
--- OUTSIDE RECORDS SUMMARY | 2021-07-27 14:10 | CCD ---
Author Author Jean Lane MD [facility] Organization Jean Lane MD [facility] Address [address] [address] Phone Care Team Providers Care Commercial Leasing Agent Name Role Phone Nina ESTRELLA Henry Unavailable [phone] Reason for Referral No Reason for Referral Recorded Problems Includes: Active, inactive, and resolved Problems All Visits Onset Date - Time Resolved Date - Time Provider Co ndition Status Cataract Senile Nuclear 03/09/2021 - 12:00AM Henry tai DO Active Dry Eye Syndrome 03/09/2021 - 12:00AM Henry valentino DO Active Vitreous Disorders Degeneration 03/09/2021 - 12:00AM Andi Wood DO Active Plan of Treatment Future Appointments Date Time Location Provider Cataract Evaluation 05/15/2021 12:00PM Jean Lane MD [facility] Assessments Includes: Assessments for all patient encounters Findings Encounter Date Pseudophakia 1 Week Post OP with Henry Wood DO 03/26/2021 Nuclear senile cataract 1 WK PREOP FOR SURGERY with Henry Wood DO 03/12/2021 Dry eye syndrome NEW PATIENT WITH REFERRAL with Henry tai DO 03/09/2021 Nuclear senile cataract NEW PATIENT WITH REFERRAL with Diann Wood DO 03/09/2021 Vitreous degeneration NEW PATIENT WITH REFERRAL with Henry Wood DO 03/09/2021 Instructions Instructions not supported for this document typeNo Instructions Recorded Medical Equipment - Implanted Devices Includes: Current and historical DevicesNo Medical Equipment Recorded Medications Includes: Current and historical Medications Current Medications (continue as prescribed) Moxifloxacin HCl 0.5% Ophthalmic Solution 03/12/2021 Provider: Henry Wood DO Diagnosis: Age-related nuclear cataract, left eye Three days prior to surgery start one drop four times a day in the left eye BromSite 0.075% Ophthalmic Solution 03/12/2021 Prov ider: Henry Wood Diagnosis: Age-related nuclear cataract, left eye Three days prior to surgery start one dr op two times a day in the left eye, RUN CARD. SEE PHARM NOTES Inveltys 1% Ophthalmic Suspension 03/12/2021 Provid er: Henry Wood Diagnosis: Age-related nuclear cataract, left eye Day of surgery remove patch start one dr op two times a day in the left eye, RUN CARD. SEE PHARM NOTES Spironolactone 25 MG Oral Tablet 03/09/2021 Provide r: Diagnosis: Atorvastatin 40 MG Oral Tablet 03/09/2021 Provider: Diagnosis: Chlorthalidone 25 MG Oral Tablet 03/09/2021 Provide r: Diagnosis: Medications Administered Includes: Administered Medications in patient's chartNo Administered Medications Recorded Vital Signs Includes: Vital Signs from 05/06/2020 through 05/06/2021No Vital Signs Recorded For Specified Dates Results Includes: Results from 05/06/2020 through 05/06/2021No Results Recorded For Specified Dates History of Present Illness History of Present Illness not supported for this document typeNo History of Present Illness Recorded Social History Description Last Updated Not using drugs 04/16/2021 A social drinker 03/09/2021 Current smoker 03/09/2021 Current smokeless tobacco user 03/09/2021 Smoking status : Current everyday smoker 03/09/2021 Tobacco use 03/09/2021 Procedures and Surgical History Includes: Procedures from 05/06/2020 through 05/06/2021 Procedures Code Diagnosis Performing Provider Service Location Service Date Extracapsular cataract removal with intraocular lens implant (Left side) 27057 Age-related nuclear cataract, left eye Henry Wood DO [facility] 03/19/2021 Ophthalmic biometry - IOL Master with IO L calculation (Left side, WAIVER OF LIABILITY ON FILE (ABN)) 06918 Age-related nuclear cataract, left eye Henry Devine MD [facility] 03/12/2021 Intermediate Eye Exam Established Patient (Signi/Sep Eval. & Man.) 77602 Age- related nuclear cataract, left eye Henry Devine MD [facility] 03/12/2021 Medical Eye Exam 56002 Age-related nuclear cataract, bilateral, Dry eye syndrome of bilateral lacrimal glands, Vitreous degeneration, bilateral Henry Devine MD [facility] 03/09/2021 Surgical History Last Updated History of extracapsular cataract extrac tion PCIOL OS by Dr. Wood 03/19/2021 04/16/2021 No surgical / procedural history 03/12/2021 Medical History Includes: Medical History in patient's chart Description Last Updated Recent change in medical history PCIOL OS by Dr. Bere jones 03/19/2021 04/16/2021 Currently wearing eyeglasses 03/09/2021 History of hyperlipidemia 03/09/2021 History of hypertension 03/09/2021 Family History Includes: Family History in patient's chart Description Last Updated Fraternal history of cataract 04/16/2021 Review of Systems Review of Systems not supported for this document typeNo Review of Systems Recorded Mental Status Mental Status not supported for this document type Description Oriented to time, place, and person Functional Status Functional Status not supported for this document typeNo Functional Status Recorded Physical Exam Physical Exam not supported for this document typeNo Physical Exam Recorded Immunizations Includes: Immunizations in patient's chartNo Immunizations Recorded Allergies Includes: Active, inactive, and resolved AllergiesNo Known Allergies Encounters Includes: Encounters from 05/06/2020 through 05/06/2021 Encounter Provider Location Date Check-In Time Check-Out Time D iagnosis 3-4 Week Post-op Henry Devine MD [facility] 03/27 8:11AM 8:43AM 1 Week Post OP Henry Devine MD [facility] 03/26/20 21 9:02AM 10:30AM Pseudophakia Extracapsular cataract removal w/IOL implant Henry lockhart DO [facility] 03/19/2021 6:38AM 6:38AM 1 WK PREOP FOR SURGERY Henry Devine MD [facility] 03/12/2021 7:19AM 8:09AM Cataract Senile Nuclear NEW PATIENT WITH REFERRAL Henry Devine MD [facility] 03/09/2021 1:41PM 4:00PM Dry Eye Syndrome, Ca taract Senile Nuclear, Vitreous Disorders Degeneration Insurance Includes: Active Insurance Policies Plan Name Member ID Group # Subscriber Relationship Effective Da nasrin 1 - Medicare Part B [facility] ([facility]) [id number] Govind Mena Self 2 - [facility] [id number] Govind Mena Self Advance Directives Includes: Current Advance DirectivesNo Advance Directives Recorded Health Concerns Includes: Active Health ConcernsNo Active Health Concerns Recorded Goals Includes: Active GoalsNo Active Goals Recorded Interventions Includes: Interventions for active GoalsNo Interventions Recorded Evaluations & Outcomes Includes: Evaluations & Outcomes for active GoalsNo Outcomes Recorded
--- OUTSIDE RECORDS SUMMARY | 2021-07-27 14:10 | CCD ---
Author Author Jean Lane MD [facility] Organization Jean Lane MD [facility] Address [address] [address] Phone Care Team Providers Care Framing And Hanging Name Role Phone Nina ESTRELLA Henry Unavailable [phone] Reason for Referral No Reason for Referral [...] Cataract Evaluation 05/15/2021 12:00PM Jean Lane MD [facility] Assessments Includes: Assessments for all patient [...] History Description Last Updated Not using drugs 03/26/2021 A social drinker 03/09/2021 Current smoker 03/09/2021 Current smokeless tobacco user 03/09/2021 Smoking status : Current everyday smoker 03/09/2021 Tobacco use 03/09/2021 Procedures and Surgical History Includes: Procedures from 05/06/2020 through 05/06/2021 Procedures Code Diagnosis Performing Provider Service Location Service Date Extracapsular cataract removal with intraocular lens implant (Left side) 68571 Age-related nuclear cataract, left eye Henry Wood DO [facility] 03/19/2021 Ophthalmic biometry - IOL Master with IO L calculation (Left side, WAIVER OF LIABILITY ON FILE (ABN)) 79807 Age-related nuclear cataract, left eye Hnery Devine MD [facility] 03/12/2021 Intermediate Eye Exam Established Patient (Signi/Sep Eval. & Man.) 39582 Age- related nuclear cataract, left eye Henry Devine MD [facility] 03/12/2021 Medical Eye Exam 69882 Age-related nuclear cataract, bilateral, Dry eye syndrome of bilateral lacrimal glands, Vitreous degeneration, bilateral Henry Devine MD [facility] 03/09/2021 Surgical History Last Updated History of extracapsular cataract extrac tion PCIOL OS by Dr. Wood 03/19/2021 03/26/2021 No surgical / procedural history 03/12/2021 Medical History Includes: Medical History in patient's chart Description Last Updated Recent change in medical history PCIOL OS by Dr. Bere jones 03/19/2021 03/26/2021 Currently wearing eyeglasses 03/09/2021 History of hyperlipidemia 03/09/2021 History of hypertension 03/09/2021 Family History Includes: Family History in patient's chart Description Last Updated Fraternal history of cataract 03/26/2021 Review of Systems Review of Systems not [...] iagnosis 3-4 Week Post-op Henry Devine MD [facility] 03/27 8:11AM 8:43AM 1 Week Post OP Henry Devine MD [facility] 03/26/20 21 9:02AM 10:30AM Pseudophakia Extracapsular cataract removal w/IOL implant Henry lockhart DO [facility] 03/19/2021 6:38AM 6:38AM 1 WK PREOP FOR SURGERY Henry Devine MD [facility] 03/12/2021 7:19AM 8:09AM Cataract Senile Nuclear NEW PATIENT WITH REFERRAL Henry Devine MD [facility] 03/09/2021 1:41PM 4:00PM Dry Eye Syndrome, Ca taract Senile Nuclear, Vitreous Disorders Degeneration Insurance Includes: Active Insurance Policies Plan Name Member ID Group # Subscriber Relationship Effective Da nasrin 1 - Medicare Part B [facility] ([facility]) [id number] Govind Mena Self 2 - [facility] [id number] Govind Mena Self Advance Directives Includes: Current Advance DirectivesNo Advance Directives Recorded Health Concerns Includes: Active Health ConcernsNo Active Health Concerns Recorded Goals Includes: Active GoalsNo Active Goals Recorded Interventions Includes: Interventions for active GoalsNo Interventions Recorded Evaluations & Outcomes Includes: Evaluations & Outcomes for active GoalsNo Outcomes Recorded
--- OUTSIDE RECORDS SUMMARY | 2021-07-27 14:10 | CCD | Continuity of Care Document ---
Author Author Govind HILLS PA Organization Unknown Address [address], [address] [place] [address] Phone [phone] Care Team Providers Care Sole Rounding Machine Operator Name Role Phone Katie Sosa AUTM AUTM [...] lb BMI (Body Mass Index) 23.3 kg/m2 [place] Body Weight 172 lb Weight 75.751 kg BSA (Body Surface Area) 1.95 m2 07/01/2021 11:10am BP Systolic 154 mmHg BP Diastolic 72 mmHg Body Temperature 98.5 F Height 71 inches 5'11" Weight 166.12 lb BMI (Body Mass Index) 23.2 kg/m2 [place] Body Weight 172 lb Weight 75.354 kg BSA (Body Surface Area) 1.95 m2 Results Test Acquired Date Facility Test Result H/L Range Note Laboratory test finding 07/01/2021 [facility] Main Lab [address] [place] [address] [phone] Pathology Request For Service (SEE NOTE) 1 1 FINAL DIAGNOSIS Mass, left upper arm, excision: Mature fibroadipose tissue, consistent with lipoma. 07/03/2021 - 1120 CLINICAL DIAGNOSIS Lipoma left upper arm 07/02/20211442 GROSS DIAGNOSIS Received in formalin labeled "left upper arm" consists of one piece of yellow-horton fibroadipose tissue measuring 1.8 x 1.5 x 0.8 cm in aggregate. All in one. -SV 07/02/2021 - 1442 Signed PHANI OLIVERA MD 07/03/2021 112 Procedures Date Code Description Status 07/01/2021 46849 Excise Benign Lesion 1.1-2CM Adria nk/Arm/Leg Completed 06/10/2021 32093 Office/Outpatient Established Mo d MDM 30-39 Min Completed Medical Devices Description No Information Available Encounters Type Date Location Provider Dx Diagnosis Office Visit 06/10/2021 2:15p [facility] Lorenzo cesar JR, MD D17.20 Benign lipomatous neoplasm of skin, subc u of unsp limb D49.2 Neoplasm of unsp behavior of bone, soft tissue, and skin Assessments Date Code Description Provider 07/08/2021 D17.22 Benign lipomatous ne oplasm of skin and subcutaneous tissue of left arm NICK Arias 07/01/2021 D17.22 Benign lipomatous ne [...]
--- OUTSIDE RECORDS SUMMARY | 2021-07-27 14:10 | CCD | Continuity of Care Document ---
Author Author Govind BARKER MD Organization Unknown Address [address] [place] [address] Phone [phone] Care Team Providers Care Prep Cook Name Role Phone Katie Sosa AUTM AUTM [...] 1/2 tab by mouth Tuesday,tue, tuesday Unknown 0000/0 000 Spironolactone 25mg Tablets 1/2 tab every day Unknown Immunizations Description No Information Available Vital Signs Date Vital Result Comment 07/01/2021 11:10am BP Systolic 154 mmHg BP Diastolic 72 mmHg Body Temperature 98.5 F Height 71 inches 5'11" Weight 166.12 lb BMI (Body Mass Index) 23.2 kg/m2 [place] Body Weight 172 lb Weight 75.354 kg BSA (Body Surface Area) 1.95 m2 06/27/2019 9:20am BP Systolic 150 mmHg BP Diastolic 70 mmHg Height 71 inches 5'11" Weight 167.25 lb BMI (Body Mass Index) 23.3 kg/m2 [place] Body Weight 172 lb Weight 75.865 kg BSA (Body Surface Area) 1.95 m2 Results Test Acquired Date Facility Test Result H/L Range Note Laboratory test finding 07/01/2021 [facility] Main Lab [address] [place] [address] [phone] Pathology Request For Service (SEE NOTE) 1 [...] 1121 Procedures Date Code Description Status 07/01/2021 67006 Excise Benign Lesion 1.1-2CM Adria nk/Arm/Leg Completed 06/10/2021 68405 Office/Outpatient Established Mo d MDM 30-39 Min Completed Medical Devices Description No Information Available Encounters Type Date Location Provider Dx Diagnosis Office Visit 06/10/2021 2:15p [facility] Lorenzo cesar JR, MD D17.20 Benign lipomatous neoplasm of skin, subc u of unsp limb D49.2 Neoplasm of unsp behavior of bone, soft tissue, and skin Assessments Date Code Description Provider 07/01/2021 D17.22 Benign lipomatous ne oplasm of skin and subcutaneous tissue of left arm Lorenzo Barker JR, MD 06/10/2021 D17.20 Benign lipomatous ne oplasm of skin and subcutaneous tissue of unspecified limb Lorenzo Barker JR, MD 06/10/2021 D49.2 Neoplasm of unspecif ied behavior of bone, soft tissue, and skin Lorenzo Barker JR, MD Plan of Treatment Future Appointment(s):* 07/08/2021 11:15 am - NICK Arias at [facility] 07/01/2021 - Lorenzo Barker JR, MD* D17.22 Benign lipomatous neoplasm of skin and subcutaneous tissue of left arm* Comments:* Preoperative diagnosis lipoma left upper arm 1 x 1.5 cmPostoperative diagnosis sameProcedure excision of lipoma left upper armProcedure summaryThe patient was prepped and draped in a sterile fashion local lidocaine mixed with epinephrine was infiltrated the skin and subcutaneous tissue and a transverse incision was made over the top of this lesion blunt dissection was carried down to the lipoma which was removed using a combination of blunt and sharp dissection the lesion was removed in its entirety appeared to be a lipoma and the dermis was brought together with 3-0 Vicryl 5-0 nylon was used to approximate the skin antibiotic ointment and a dry sterile dressing was applied patient was discharged home with instructions to follow-up in 1 week for suture removal wound care instructions were given and the patient was given also instructions to return if any complaints concerns fevers chills increasing tenderness or pain at the site. Functional Status Description No Information Available Mental Status Description No Information Available Referrals Description No Information Available
--- OUTSIDE RECORDS SUMMARY | 2021-07-27 14:10 | CCD | Continuity of Care Document ---
Author Author Govind BARKER MD Organization Unknown Address [address] [facility] [address] [place] [address] Phone [phone] Care Team Providers Care Candlemaking Laborer Name Role Phone Katie Sosa AUTM [phone] AUTM Unavailable Problems Active Problems Provider Date Essential hypertension Serge Andersen NP Onset: 04/16/2019 Social History Type Date Description Comments Sex Unknown ETOH Use Currently consumes alcohol 2-3 T IMES A WEEK Recreational Drug Use Denies Drug Use Tobacco Use Start: Unknown Patient is a current smoker, smo kes every day 1 PPD for 45 years Allergies, Adverse Reactions, Alerts Description No Known Drug Allergies Medications Active Medications SIG Qnty Indications Ordering Provide r Date Atorvastatin Calcium 40mg Tablets 1 qd Unknown Chlorthalidone 25mg Tablets 1/2 tab by mouth Tuesday,tue, tuesday Unknown 00/00/0 000 Spironolactone 25mg Tablets 1/2 tab every day Unknown Immunizations Description No Information Available Vital Signs Date Vital Result Comment 06/27/2019 9:20am BP Systolic 150 mmHg BP Diastolic 70 mmHg Height 71 inches 5'11" Weight 167.25 lb BMI (Body Mass Index) 23.3 kg/m2 [place] Body Weight 172 lb Weight 75.865 kg BSA (Body Surface Area) 1.95 m2 06/20/2019 3:18pm BP Systolic 110 mmHg BP Diastolic 60 mmHg Height 71 inches 5'11" Weight 168.00 lb BMI (Body Mass Index) 23.4 kg/m2 [place] Body Weight 172 lb Weight 76.205 kg BSA (Body Surface Area) 1.96 m2 Results Description No Information Available Procedures Date Code Description Status 06/10/2021 55098 Office/Outpatient Established Mo d MDM 30-39 Min Completed Medical Devices Description No Information Available Encounters Type Date Location Provider Dx Diagnosis Office Visit 06/10/2021 2:15p [facility] Practice Lorenzo cesar JR, MD D17.20 Benign lipomatous neoplasm of skin, subc u of unsp limb D49.2 Neoplasm of unsp behavior of bone, soft tissue, and skin Assessments Date Code Description Provider 06/10/2021 D17.20 Benign lipomatous ne oplasm of skin and subcutaneous tissue of unspecified limb Lorenzo Barker JR, MD 06/10/2021 D49.2 Neoplasm of unspecif ied behavior of bone, soft tissue, and skin Lorenzo Barker JR, MD Plan of Treatment Future Appointment(s):* 07/01/2021 11:15 am - Lorenzo Barker JR, MD at [facility] 06/10/2021 - Lorenzo Barker JR, MD* D17.20 Benign lipomatous neoplasm of skin and subcutaneous tissue of unspecified limb* Comments:* Patient has a subcutaneous mass which is well-circumscribed and nontender and at this point my recommendation is to proceed with excision of this he has had some more discomfort in the area and I am not sure if it is pulling on the fascia or whether its impinging on any other structure but in general I do feel that it is reasonable to remove this he understands risks as well as benefits associated with removal of this and the risks include but are not limited to infection bleeding damage to surrounding structures including nerve blood vessels fascia and possible recurrence of the lesion he understands would like to have this removed at the next visit. * D49.2 Neoplasm of unspecified behavior of bone, soft tissue, and skin Functional Status Description No Information Available Mental Status Description No Information Available Referrals Description No Information Available
--- OUTSIDE RECORDS SUMMARY | 2021-07-27 14:10 | CCD | Continuity of Care Document ---
Author Author Govind BARKER MD Organization Unknown Address [address] [facility] [address] [place] [address] Phone [phone] Care Team Providers Care Commodity Trader Name Role Phone Katie Sosa AUTM [phone] AUTM Unavailable Problems Active Problems Provider Date [...] lb BMI (Body Mass Index) 23.2 kg/m2 [place] Body Weight 172 lb Weight 75.354 kg BSA (Body Surface Area) 1.95 m2 06/27/2019 9:20am BP Systolic 150 mmHg BP Diastolic 70 mmHg Height 71 inches 5'11" Weight 167.25 lb BMI (Body Mass Index) 23.3 kg/m2 [place] Body Weight 172 lb Weight 75.865 kg BSA (Body Surface Area) 1.95 m2 Results Test Acquired Date Facility Test Result H/L Range Note Laboratory test finding 07/01/2021 [facility] Main Lab [address] [place] [address] [phone] Pathology Request For Service <pending> Procedures Date Code Description Status 06/10/2021 35154 Office/Outpatient Established Mo d MDM 30-39 Min Completed Medical Devices Description No Information Available Encounters Type Date Location Provider Dx Diagnosis Office Visit 06/10/2021 2:15p [facility] Practice Lorenzo cesar JR, MD D17.20 [...] 07/08/2021 11:15 am - NICK Arias at [facility] 06/10/2021 - Lorenzo Barker JR, MD* D17.20 [...]
--- OUTSIDE RECORDS SUMMARY | 2021-07-27 14:10 | CCD | Continuity of Care Document ---
Author Author Govind BARKER MD Organization Unknown Address [address] [facility] [address] [place] [address] Phone [phone] Care Team Providers Care Samples And Repairs Preparer Name Role Phone Katie Sosa AUTM [phone] AUTM Unavailable Problems Active Problems Provider Date [...] lb BMI (Body Mass Index) 23.2 kg/m2 [place] Body Weight 172 lb Weight 75.354 kg BSA (Body Surface Area) 1.95 m2 06/27/2019 9:20am BP Systolic 150 mmHg BP Diastolic 70 mmHg Height 71 inches 5'11" Weight 167.25 lb BMI (Body Mass Index) 23.3 kg/m2 [place] Body Weight 172 lb Weight 75.865 kg BSA (Body Surface Area) 1.95 m2 Results Test Acquired Date Facility Test Result H/L Range Note Laboratory test finding 07/01/2021 [facility] Main Lab [address] [place] [address] [phone] Pathology Request For Service <pending> Procedures Date Code Description Status 06/10/2021 91400 Office/Outpatient Established Mo d MDM 30-39 Min Completed Medical Devices Description No Information Available Encounters Type Date Location Provider Dx Diagnosis Office Visit 06/10/2021 2:15p [facility] Practice Lorenzo cesar JR, MD D17.20 [...] 07/08/2021 11:15 am - NICK Arias at [facility] 06/10/2021 - Lorenzo Barker JR, [...]
--- OUTSIDE RECORDS SUMMARY | 2021-07-27 14:10 | CCD | Continuity of Care Document ---
Author Author Govind HILLS PA Organization Unknown Address [address] [facility] [place] [address] Phone [phone] Care Team Providers Care Manager Building Name Role Phone Katie Sosa AUTM AUTM [...] lb BMI (Body Mass Index) 23.3 kg/m2 [place] Body Weight 172 lb Weight 75.751 kg BSA (Body Surface Area) 1.95 m2 07/01/2021 11:10am BP Systolic 154 mmHg BP Diastolic 72 mmHg Body Temperature 98.5 F Height 71 inches 5'11" Weight 166.12 lb BMI (Body Mass Index) 23.2 kg/m2 [place] Body Weight 172 lb Weight 75.354 kg BSA (Body Surface Area) 1.95 m2 Results Test Acquired Date Facility Test Result H/L Range Note Laboratory test finding 07/01/2021 [facility] Main Lab [address] [place] [address] [phone] Pathology Request For Service (SEE NOTE) 1 [...] 112 Procedures Date Code Description Status 07/01/2021 70272 Excise Benign Lesion 1.1-2CM Adria nk/Arm/Leg Completed 06/10/2021 73139 Office/Outpatient Established Mo d MDM 30-39 Min Completed Medical Devices Description No Information Available Encounters Type Date Location Provider Dx Diagnosis Office Visit 06/10/2021 2:15p [facility] Practice Lorenzo cesar JR, MD [...]
--- OUTSIDE RECORDS SUMMARY | 2021-07-27 14:10 | CCD | Continuity of Care Document ---
Author Author Govind BARKER MD Organization Unknown Address [address] [facility] [address] [place] [address] Phone [phone] Care Team Providers Care Hospitality Director Name Role Phone Katie Sosa AUTM AUTM [...] lb BMI (Body Mass Index) 23.2 kg/m2 [place] Body Weight 172 lb Weight 75.354 kg BSA (Body Surface Area) 1.95 m2 06/27/2019 9:20am BP Systolic 150 mmHg BP Diastolic 70 mmHg Height 71 inches 5'11" Weight 167.25 lb BMI (Body Mass Index) 23.3 kg/m2 [place] Body Weight 172 lb Weight 75.865 kg BSA (Body Surface Area) 1.95 m2 Results Test Acquired Date Facility Test Result H/L Range Note Laboratory test finding 07/01/2021 [facility] Main Lab [address] [place] [address] [phone] Pathology Request For Service (SEE NOTE) 1 [...] 1121 Procedures Date Code Description Status 07/01/2021 78738 Excise Benign Lesion 1.1-2CM [place]ria nk/Arm/Leg Completed 06/10/2021 41858 Office/Outpatient Established Mo d MDM 30-39 Min Completed Medical Devices Description No Information Available Encounters Type Date Location Provider Dx Diagnosis Office Visit 06/10/2021 2:15p [facility] Surgery Practice Lorenzo cesar JR, MD [...] Lorenzo Barker JR, MD Plan of Treatment 07/01/2021 - Lorenzo Barker JR, MD* D17.22 [...]
--- OUTSIDE RECORDS SUMMARY | 2021-07-27 14:10 | CCD ---
Author Author [employer] Organization [employer] Address Unknown Phone Unavailable Care Team Providers Care Lead Teacher Name Role Phone Katie Sosa Unavailable PROBLEMS Type Condition ICD9-CM Code [id number] Code Onset Dates Condition S tatus W/U Status Risk SNOMED Code Notes Problem Age-related cataract of both eyes, unspecified age-related cataract type H25.9 Active confirmed 04634749 Problem Other hyperlipidemia E78.49 Active confirmed 08506586 Problem Smoker F17.200 Active confirmed 39309911 Problem HTN (hypertension), benign I10 Active confirmed 48517423 Problem Constipation, unspecified constipation type K59.00 Active confirmed 31120512 ALLERGIES No Known Allergies ENCOUNTERS from 1950 to 2021-06-10 Encounter Location Date Provider Diagnosis [facility] [phone] [place] [address] May, Katie Sosa Age-related cataract of both eyes, unspe cified age-related cataract type H25.9 ; Pre-op exam Z01.818 ; HTN (hypertension), benign I10 ; Smoker F17.200 and Other hyperlipidemia E78.49 IMMUNIZATIONS Vaccine Route Administration Date Status TDAP 0.5mL (Boostrix) IM Intramuscular January 29, 2019 Administe red Pneumococcal 0.5mL Prevnar 13 IM Intramuscular January 29, 2019 A dministered SOCIAL HISTORY Tobacco Use: Social History Observation Description Date Details (start date - stop date) Current Smoker Sex Assigned At : Social History Observation Description Sex Assigned At Unknown Audit Question Answer Notes Total Score: 4 Interpretation: Alcohol Education Language: Question Answer Notes Languages spoken: Macedonian Sexual Hx: Question Answer Notes Had sex in the last 12 months (vaginal, oral, or anal)? Yes Have you ever had an STD? No with Women only Use protection? No Drug and Alcohol Question Answer Notes Total Score: 0 Interpretation: No problems reported Alcohol Screening: Question Answer Notes Did you have a drink containing alcohol in the past year? Ye s Points 5 Interpretation Positive How often did you have six or more drinks on one occas ion in the past year? Monthly (2 points) How many drinks did you have on a typica l day when you were drinking in the past year? 1 or 2 (0 points) How often did you have a drink containing alcohol in t he past year? Two to three times per week (3 points) Tobacco Use: Question Answer Notes Are you a: current smoker How many cigarettes a day do you smoke? 11- Are you interested in quitting? Not ready to quit Counseled the patient on smoking effects, education provided 09/05/2019 REASON FOR REFERRAL No Information VITAL SIGNS Weight 169.8 lbs May, Weight-kg 77.02 kg May, Height 71 in May, BMI 23.68 kg/m2 May, Heart Rate 59 /min May, Respiratory Rate 20 /min May, Temperature 97.8 degrees Fahrenheit May, Oximetry 99 May, Blood pressure systolic 130 mm Hg May, Blood pressure diastolic 82 mm Hg May, MEDICATIONS Medication SIG (Take, Route, Frequency, Duration) Notes Start Da te End Date Status Atorvastatin Calcium 40 MG 1 tablet Orally Once a day Active Chlorthalidone 25 mg 0.5 tablet in the morning with food Orally [facility] Active Spironolactone 25 mg 1 tablet Orally Once a day Dr. Stone Active MiraLax - 1 cap Orally 1-3 times per day for 30 Days 2019 Active PROCEDURES No Information RESULTS No Results REASON FOR VISIT DR SANDS RIGHT EYE CATARACT EKG TO BE DONE SURGERY 06/18 [facility] MEDICAL (GENERAL) HISTORY Type Description Date Medical History Hyperlipidemia Medical History HTN Medical History smoker Surgical History tonsillectomy 1956 Surgical History colonoscopy: tubular adenoma: repeat 3 y ears: 05/2019 Surgical History Left eye cataract repair 02/2021 Goals Section No Information Health Concerns No Information MEDICAL EQUIPMENT No Information MENTAL STATUS No Information FUNCTIONAL STATUS No Information ASSESSMENTS Encounter Date Diagnosis Assessment Notes Treatment Notes Treatm ent Clinical Notes May, Pre-op exam (ICD-10 - Z01.818) He tolerated his prior cataract repair without issue and I anticipate his risk for inter/intraoperative complications is low. May, Age-related cataract of both eyes, unspecified age-related cataract type (ICD-10 - H25.9) May, HTN (hypertension), benign (ICD-10 - I10) EKG from 12/18/2020 is stable and a repeat is unnecessary. May, Smoker (ICD-10 - F17.200) Low dose lung screening to be complete annually. smoking cessation counseling given. Risks of smoking, including vascular disease (including stroke, heart attack), COPD ( including emphysema and chronic bronchitis), as well as reduced quality of life reviewed with pt. May, Other hyperlipidemia (ICD-10 - E78.49) PLAN OF TREATMENT Medication Medication Name Sig Start Date Stop Date Atorvastatin Calcium 40 MG 1 tablet Orally Once a day Spironolactone 25 mg 1 tablet Orally Once a day Chlorthalidone 25 mg 0.5 tablet in the morning with food Orally MWF Treatment Notes Assessment Notes Clinical Notes Pre-op exam He tolerated his ami or cataract repair without issue and I anticipate his risk for inter/intraoperative complications is low. HTN (hypertension), benign EKG from 11/25 is stable and a repeat is unnecessary. Smoker Low dose lung screen ing to be complete annually. smoking cessation counseling given. Risks of smoking, including vascular disease (including stroke, heart attack), COPD ( including emphysema and chronic bronchitis), as well as reduced quality of life reviewed with pt. Next Appt Details as scheduled Reason: Provider Name:Katie Sosa, 03-10 07:30:00 AM, [facility] [address], , [place], [address], Insurance Providers Payer Name Payer Address Payer Phone Insured Name Patient Relati onship to Insured Coverage Start Date Coverage End Date [employer] [facility] CLAIM DIV [address] [place] [id number] [employer] [place] MEDICARE Part A and B [address] [facility] [address] [phone] [employer] [place] self
--- OUTSIDE RECORDS SUMMARY | 2021-07-27 14:10 | CCD | Continuity of Care Document ---
Author Author Govind BARKER MD Organization Unknown Address [address] [facility] [address] [place] [address] Phone [phone] Care Team Providers Care Photoradio Operator Name Role Phone Katie Sosa AUTM [...] lb BMI (Body Mass Index) 23.2 kg/m2 [place] Body Weight 172 lb Weight 75.354 kg BSA (Body Surface Area) 1.95 m2 06/27/2019 9:20am BP Systolic 150 mmHg BP Diastolic 70 mmHg Height 71 inches 5'11" Weight 167.25 lb BMI (Body Mass Index) 23.3 kg/m2 [place] Body Weight 172 lb Weight 75.865 kg BSA (Body Surface Area) 1.95 m2 Results Test Acquired Date Facility Test Result H/L Range Note Laboratory test finding 07/01/2021 [facility] Main Lab [address] [place] [address] [phone] Pathology Request For Service <pending> Procedures Date Code Description Status 06/10/2021 49662 Office/Outpatient Established Mo d MDM 30-39 Min Completed Medical Devices Description No Information Available Encounters Type Date Location Provider Dx Diagnosis Office Visit 06/10/2021 2:15p [facility] Practice Lorenzo cesar JR, MD D17.20 Benign [...] 07/08/2021 11:15 am - NICK Arias at [facility] 06/10/2021 - Lorenzo Barker JR, MD* [...]
--- OUTSIDE RECORDS SUMMARY | 2021-07-27 14:10 | CCD | Continuity of Care Document ---
Author Author Govind BARKER MD Organization Unknown Address [address] [facility] [address] [place] [address] Phone [phone] Care Team Providers Care Math Tutor Name Role Phone Katie Sosa AUTM AUTM [...] lb BMI (Body Mass Index) 23.3 kg/m2 [place] Body Weight 172 lb Weight 75.865 kg BSA (Body Surface Area) 1.95 m2 06/20/2019 3:18pm BP Systolic 110 mmHg BP Diastolic 60 mmHg Height 71 inches 5'11" Weight 168.00 lb BMI (Body Mass Index) 23.4 kg/m2 [place] Body Weight 172 lb Weight 76.205 kg BSA (Body Surface Area) 1.96 m2 Results Description No Information Available Procedures Description No Information Available Medical Devices Description No Information Available Encounters Description No Information Available Assessments Description No Information Available Plan of Treatment Future Appointment(s):* 07/01/2021 11:15 am - Lorenzo Barker JR, MD at [facility] 06/27/2019 - Clinton Ty M.D.* D12.2 Benign neoplasm of ascending colon* Comments:* Patient reports that his discomfort had resolved within about 2 days. He only took the antibiotics for that long and then felt he didn't need them anymore. Given that he had adenomatous polyps I have recommended that he have a repeat colonoscopy in 3 years. He can return sooner as necessary. * D12.3 Benign neoplasm of transverse colon * D12.8 Benign neoplasm of rectum Functional Status Description No Information Available Mental Status Description No Information Available Referrals Description No Information Available
--- OUTSIDE RECORDS SUMMARY | 2021-07-27 14:10 | CCD | Continuity of Care Document ---
Author Author Govind HILLS PA Organization Unknown Address [address] [facility], [address] [place] [address] Phone [phone] Care Team Providers Care Manufacturing Engineering Manager Name Role Phone Katie Sosa AUTM [phone] AUTM Unavailable Problems Active Problems Provider Date [...] lb BMI (Body Mass Index) 23.3 kg/m2 [place] Body Weight 172 lb Weight 75.751 kg BSA (Body Surface Area) 1.95 m2 07/01/2021 11:10am BP Systolic 154 mmHg BP Diastolic 72 mmHg Body Temperature 98.5 F Height 71 inches 5'11" Weight 166.12 lb BMI (Body Mass Index) 23.2 kg/m2 [place] Body Weight 172 lb Weight 75.354 kg BSA (Body Surface Area) 1.95 m2 Results Test Acquired Date Facility Test Result H/L Range Note Laboratory test finding 07/01/2021 [facility] Main Lab [address] [place] [address] [phone] Pathology Request For Service (SEE NOTE) 1 [...] 112 Procedures Date Code Description Status 07/01/2021 99981 Excise Benign Lesion 1.1-2CM Adria nk/Arm/Leg Completed 06/10/2021 89344 Office/Outpatient Established Mo d MDM 30-39 Min Completed Medical Devices Description No Information Available Encounters Type Date Location Provider Dx Diagnosis Office Visit 06/10/2021 2:15p [facility] Practice Lorenzo cesar JR, MD D17.20 [...]
[2021-07-27] MEDS ORDERED: ONDANSETRON 4MG/2ML VIAL IV ONE (14:20)
[2021-07-27] MEDS ORDERED: BOOSTRIX/ADACEL VACCINE (DIPHTH/PERTUSS/ACELL/TETANUS) 0.5ML SYR IM ONE (14:30)
--- NOTE | 2021-07-27 14:49 | REP ---
INDICATION: Trauma. COMPARISON: None. TECHNIQUE: CT BRAIN PERFORMED IN THE AXIAL PLANE. CORONAL RECONSTRUCTION IMAGES ARE PERFORMED. FINDINGS: Soft tissue windows show lateral ventricles are midline symmetric and without dilatation or displacement. Basal ganglia are symmetric and normal pittman-white differentiation is maintained. Some mild cortical atrophy which is age-appropriate. Third and 4th ventricles unremarkable. There is no vascular territory infarct, intra or extra-axial hemorrhage, mass or mass effect. There is a left posterolateral parietal scalp hematoma without evidence for adjacent skull fracture. No evidence for coup-contrecoup injury. Posterior fossa shows no hemorrhage or mass. Some very minimal atrophy of the cerebellum. The basal cisterns are intact. Mastoid aeration symmetric. Visualized sinuses were clear. I see no fracture of the skull base or calvarium. IMPRESSION: 1. There is no intracranial hemorrhage, acute infarct, mass or mass effect. 2. Age-appropriate chronic changes without significant atrophy. 3. Left posterior parietal scalp hematoma without adjacent skull fracture in the remainder of the calvarium and skull base unremarkable. Sinuses and mastoids clear. <Electronically signed by Andi Johnson > 07/27/21 8384
[2021-07-27] MEDS: MORPHINE 4 MG/ML 1ML VIAL/SYRINGE (J2270) IV PRN ×2 (14:54→15:52)
--- NOTE | 2021-07-27 14:55 | REP ---
INDICATION: Trauma. COMPARISON: None. TECHNIQUE: Trauma protocol with coronal and sagittal bone window reconstructions. FINDINGS: Normal cervical lordosis noted. Spondylosis noted with anterior osteophytes at C4-5 through C6-7. Small posterior osteophytes at C4-5 minimally at C5-6 and C6-7. Disc spaces are slightly narrowed at C4-5 and C5-6. There is no compression deformity. No fracture of the dens but there is some degenerative change at its articulation with the anterior arch of C1. Dens and lateral masses of C1 align normally and the craniocervical and cervicothoracic junctions both align normally. No compression fracture or destructive lesions. The spinous processes, lamina, pedicles, facets, transverse processes and transverse foramina are without evidence for fracture. Visualized portions of the 1st 4 ribs included were unremarkable as are the thoracic vertebral levels included. Those portions of lung apices included were unremarkable. There is no prevertebral swelling. Some posterior osteophytic ridging and uncinate spurring combining to cause some mild central canal stenosis at C4-5 with foraminal encroachment minimally on the right at this level. There is also minimal foraminal encroachment at C 5-6 on the right. The other foramina are adequate. There is atherosclerotic calcification of the common carotids and proximal internal carotids, left greater than right. IMPRESSION: 1. Cervical spondylosis throughout but greatest at C5-6 and C6-7 with disc space narrowing greatest at C4-5 and C5-6. No compression fracture. Only minimal central canal and foraminal stenosis at levels described. No acute finding. No prevertebral swelling. <Electronically signed by Andi Johnson > 07/27/21 6612
--- NOTE | 2021-07-27 15:00 | REP ---
INDICATION: right wrist pain; fall. COMPARISON: None. TECHNIQUE: Four views FINDINGS: Distal radius and ulna without any definite fracture or avulsion. Carpal bones and their articulations were intact. There are some degenerative changes at the 1st CMC joint. Visualized metacarpals and other CMC joints intact. I do not see significant soft tissue swelling over the dorsal aspect of the wrist or the metacarpals. No abnormal soft tissue calcifications. IMPRESSION: 1. No visible or displaced fracture, avulsion or significant soft tissue swelling about the wrist. <Electronically signed by Andi Johnson > 07/27/21 4216
--- NOTE | 2021-07-27 15:01 | REP ---
INDICATION: Trauma. COMPARISON: None. TECHNIQUE: Portable FINDINGS: The technique utilized in obtaining the radiograph has magnified the cardiac silhouette and accentuated the interstitial markings. The superior mediastinal structures are midline. The cardiac silhouette is unremarkable in size, shape, and position. The diaphragmatic surfaces of the lungs are regular, and the costophrenic angles are clear. The pulmonary [place] are clear. The imaged osseous structures are intact. IMPRESSION: There is no acute cardiopulmonary disease. <Electronically signed by Kirill Thompson > 07/27/21 2908
--- NOTE | 2021-07-27 15:03 | REP ---
INDICATION: Trauma. COMPARISON: CT abdomen pelvis bone windows 06/20/2019 TECHNIQUE: AP pelvis with two views left hip. FINDINGS: The pelvic ring is intact peer the SI joints are symmetric and normal. Sacral ala and foramina unremarkable. Some vascular calcifications are seen in the pelvis. Pelvic wing show no fracture or focal lesion. There is some minor degenerative changes with sclerosis at the acetabular roof but no significant hip joint space narrowing. No avulsion or fracture about either hip on the AP pelvis. Symphysis pubis and pubic rami unremarkable. Minor degenerative changes lower lumbar spine. Two views of the left hip show no evidence of AVN or fracture. No hip joint space narrowing, abnormal soft tissue calcification or avulsion. IMPRESSION: 1. Some minor degenerative changes lower lumbar spine and hips but no visible or displaced fracture, avulsion or other acute bony finding. <Electronically signed by Andi Johnson > 07/27/21 1500
--- NOTE | 2021-07-27 15:06 | REPVR ---
PROCEDURE INFORMATION: Exam: CT Thoracic Spine Without Contrast Exam date and time: 07/27/2021 2:17 PM Age: 70 years old Clinical indication: Injury or trauma; Fall; Blunt trauma (contusions or hematomas) TECHNIQUE: Imaging protocol: Computed tomography images of the thoracic spine without contrast. Radiation optimization: All CT scans at this facility use at least one of these dose optimization techniques: automated exposure control; mA and/or kV adjustment per patient size (includes targeted exams where dose is matched to clinical indication); or iterative reconstruction. COMPARISON: LOW DOSE LUNG SCREENING CT 05/29/2021 9:19 AM FINDINGS: Vertebrae: There is spondylitic fusion of several upper thoracic vertebral bodies and to a lesser degree in the midthoracic spine. There is a wedge compression fracture of L1 primarily involving the inferior endplate. This is a Chance type fracture since it extends through the left pedicle, facet joint and spinous process. Series 504, images 22-30, series 501, images 73-80, series 503, images 13-33. There is mild retropulsion of the inferior endplate without significant spinal canal stenosis. Discs/Spinal canal/Neural foramina: See "Vertebrae" finding. Soft tissues: Unremarkable. Kidneys and ureters: Calcifications in the right kidney are most likely arterial. IMPRESSION: There is a Chance type fracture of L1 which is likely unstable. Electronically signed by: Oma Liu On 07/27/2021 15:06:13 PM
--- OUTSIDE RECORDS SUMMARY | 2021-07-27 15:41 | CCD ---
Author Author [facility] Organization [facility] Address Unknown Phone Unavailable Care Team Providers Care Government Minister Name Role Phone ENIO, L AKASH PA [...] Taty Barker JR, MD Unavailable Unavailable Taty Braker JR, MD Unavailable Unavailable Taty Barker JR, [...] Lorenzo MD Unavailable Unavailable Mj JR, J Lorezno MD Unavailable Unavailable Mj JR, J Lorenzo [...] Unavailable REBA, A CIELO DO Unavailable Unavailable RBEA, A CIELO DO Unavailable Unavailable REBA, A [...] is protected by Article 27-F of the [facility] Public Health law. If you continue you may have access to information: Regarding HIV / AIDS; Provided by facilities licensed or operated by the [facility] Office of Mental Health; or Provided by the [facility] Office for People With Developmental Disabilities. If such information is present, then the following [facility] mandated warning applies: This information has been [...] law may result in a fine or long-term sentence or both. A general authorization for the release of medical or other information is NOT sufficient authorization for further disc losure. Allergies and Adverse Reactions Type Description Substance Reaction Status Data Source(s ) Allergy to substance No Known Allergies No known allergies (situation ) TAWNYA (Jean Nagel MD [facility]) Allergy to substance No Known Allergies No known allergies (situation ) TAWNYA (Jean Nagel MD [facility]) Allergy to substance No Known Allergies No known allergies (situation ) TAWNYA (Jean Nagel MD [facility]) Allergy to substance No Known Allergies No known allergies (situation ) TAWNYA (Jean Nagel MD [facility]) Allergy to substance No Known Allergies No known allergies (situation ) WALDRON (Jean Nagel MD [facility]) Family History Family Member Name Family Member Gender Family Member Status Date o f Status Description Data Source(s) Unknown Male Problem MEDENT ([facility]) Encounters Encounter Providers Location Date Indications Data Source(s ) Office Visit Attender: Allison Joshi/Millie/Bryson/Jimmie pearl 07/08/2021 01:30:00 PM EDT MEDENT ([facility] Outpatient Attender: Lorenzo Joshi/Millie/Bryson/Rein dl 06/10/2021 02:15:00 PM EDT MEDENT ([facility] Outpatient [address] [place] [address] 06/08/2021 12:00:00 AM EDT eCW1 ([facility]) Outpatient<td ID="encounterTypeDescripti onID0">3-4 Week Post-op</td><td>Cielo Wood DO</td><td>Jean Lane MD [facility]</td><td>04/16/2021</td><td>8:11AM</td><td>8:43AM</td><td></td> Attender: CIELO Devine MD [facility] 04/16/2021 08:11:00 AM EDT - 04/16/2021 08:43:00 AM EDT TAWNYA (Jean greer MD [facility]) Unknown [address] [place] [address] 04/07/2021 12:00:00 AM EDT eCW1 ([facility]) <td ID="encounterTypeDescriptionID1">[address] [place] [address] OP</td><td>Cielo Wood DO</td><td>Jean Lane MD [facility]</td><td>03/26/2021</td><td>9:02AM</td><td>10:30AM</td><td><content ID="encounterDiagnosisID1-0">Pseudophakia</content></td>Outpatient Attender: CIELO Devine MD [facility] 03/26/2021 09:02:00 AM EDT - 03/26/2021 10:30:00 AM EDT PseudophakiaPseudophakia TAWNYA (Jean greer MD [facility]) Pseudophakia Pseudophakia <td ID="encounterTypeDescriptionID2">Ext racapsular cataract removal w/IOL implant</td><td>Cielo Wood DO</td><td>[facility]</td><td>03/19/2021</td><td>6:38AM</td><td>6:38AM</td><td></td>Outpatient Attender: CIELO WOOD DO [facility] 03/19/2021 06:38:00 AM EDT - 03/19/2021 06:38:00 AM EDT TAWNYA (Jean Nagel MD [facility]) Outpatient<td ID="encounterTypeDescripti onID3">1 WK PREOP FOR SURGERY</td><td>Cielo Wood DO</td><td>Jean Lane MD [facility]</td><td>03/12/2021</td><td>7:19AM</td><td>8:09AM</td><td><content ID="encounterDiagnosisID3-0">Cataract Senile Nuclear</content></td> Attender: CIELO Devine MD [facility] 03/12/2021 07:19:00 AM EDT - 03/12/2021 08:09:00 AM EDT Cataract Senile NuclearCataract Senile NuclearCataract Senile NuclearCataract Senile NuclearCataract Senile Nuclear TAWNYA (Jean Nagel MD [facility]) 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 Office Visit, Est Pt., Level [address] [place] [address] 03/10/2021 12:00:00 AM EDT eCW1 ([facility]) Outpatient<td ID="encounterTypeDescripti onID4">NEW PATIENT WITH REFERRAL</td><td>Cielo Wood DO</td><td>Jean Lane MD [facility]</td><td>03/09/2021</td><td>1:41PM</td><td>4:00PM</td><td><content ID="encounterDiagnosisID4-0">Dry Eye Syndrome</content>, <content ID="encounterDiagnosisID4-1">Cataract Senile Nuclear</content>, <content ID="encounterDiagnosisID4-2">Vitreous Disorders Degeneration</content></td> Attender: CIELO Devine MD [facility] 03/09/2021 01:41:00 PM EDT - 03/09/2021 04:00:00 PM EDT Vitreous Disorders DegenerationCataract Senile NuclearDry Eye SyndromeVitreous Disorders DegenerationCataract Senile NuclearDry Eye SyndromeVitreous Disorders DegenerationCataract Senile NuclearDry Eye SyndromeVitreous Disorders DegenerationCataract Senile NuclearDry Eye SyndromeVitreous Disorders DegenerationCataract Senile NuclearDry Eye Syndrome TAWNYA (Jean Nagel MD [facility]) Vitreous Disorders Degeneration Cataract Senile Nuclear Dry Eye Syndrome Vitreous Disorders Degeneration Cataract Senile Nuclear Dry Eye Syndrome Vitreous Disorders Degeneration Cataract Senile Nuclear Dry Eye Syndrome Vitreous Disorders Degeneration Cataract Senile Nuclear Dry Eye Syndrome Vitreous Disorders Degeneration Cataract Senile Nuclear Dry Eye Syndrome Unknown [address] [place] [address] 12/31/2020 12:00:00 AM EDT eC ([facility]) Outpatient Attender: AKASH ROMERO Main Office 12/18/2020 1 1:15:00 AM EDT MEDGURMEET ([facility]) Immunizations Vaccine Date Status Description Data Source(s) COVID-19 VACCINE Moderna 10/21/2020 12:00:00 AM EST completed [facility] Vaccine Series Complete: YESThis Data wa s Submitted to [place] [facility]. COVID-19 VACCINE Moderna 09/23/2020 12:00:00 AM EST completed [facility] Vaccine Series Complete: NOThis Data was Submitted to [place] [facility]. Medications Medication Brand Name Start Date Product Form Dose Route Admi nistrative Instructions Pharmacy Instructions Status Indications Reaction Description Data Source(s) BromSite 0.075% Ophthalmic Solution BromSite 0.075% Ophthalm ic Solution 03/12/2021 12:00:00 AM EDT active bromfenac 0.75 MG/ML Ophthalmic Solution [Bromsite] TAWNYA (Jean Nagel MD [facility]) Inveltys 1% Ophthalmic Suspension Inveltys 1% Ophthalmic Maria pension 03/12/2021 12:00:00 AM EDT active loteprednol etabonate 10 MG/ML Ophthalmic Suspension [Inveltys] TAWNYA (Jean Nagel MD [facility]) moxifloxacin 5 MG/ML Ophthalmic Solution Moxifloxacin HCl 0.5% Ophthalmic Solution Moxifloxacin HCl 0.5% Ophthalmic Solution 03/12/2021 12:00:00 AM EDT active moxifloxacin 5 MG/ML Oph thalmic Solution TAWNYA (Jean Nagel MD [facility]) Atorvastatin 40 MG Oral Tablet Atorvastatin 40 MG Oral Table t 03/09/2021 12:00:00 AM EDT 1 active Atorvast atin TAWNYA (Jean Nagel MD [facility]) Chlorthalidone 25 MG Oral Tablet Chlorthalidone 25 MG Oral T ablet 03/09/2021 12:00:00 AM EDT active chlortha lidone 25 MG Oral Tablet TAWNYA (Jean Nagel MD [facility]) Spironolactone 25 MG Oral Tablet Spironolactone 25 MG Oral T ablet 03/09/2021 12:00:00 AM EDT 1 active Spironol actone TAWNYA (Jean Nagel MD [facility]) Blood Pressure Monitor/Auto Arm 12/18/2020 12:00:00 AM EDT active MEDENT ([facility]) Insurance Providers Payer name Policy type / Coverage type Policy ID Covered alliance party ID Covered alliance party's relationship to borjas Policy Borjas Plan Information MEDICARE [id number] SP [id number] Y52 [employer] OPTIONS [id number] SP [id number] Medicare Part B [facility] Other 0 [id number] Self 0 Medicare Part B of [facility] Other 0 [id number] Self 0 Medicare Part B of [facility] Other 0 [id number] Self 0 Medicare Part B of [facility] Other 0 [id number] Self 0 Medicare Part B of [facility] Other 0 [id number] Self 0 AARP O [id number] S [id number] MEDICARE C [id number] S [id number] [facility] [employer] [facility] Part B [id number] Self [id number] Medicare (Part B) Medicare Primary [id number] Self [id number] ANS-Medicare Part B [id number] ANSI-Commercial [id number] MEDICARE [id number] SP [id number] [employer] [facility] Part B [id number] Self [id number] Medicare (Part B) Medicare Primary [id number] Self [id number] [employer] [facility] Part B [id number] Self [id number] Medicare (Part B) Medicare Primary [id number] Self [id number] Problems, Conditions, and Diagnoses Code Display Name Description Problem Type Effective Dates Data Source(s) E78.49 Hyperlipidemia Other hyperlipidemia Problem 06/08/2021 12:00:00 AM EDT eCW1 ([facility]) 379.21 Vitreous Disorders Degeneration Vitreous Disorders Deg eneration Problem 03/09/2021 12:00:00 AM EDT TAWNYA (Jean Nagel MD [facility]) 375.15 Dry Eye Syndrome Dry Eye Syndrome Problem 03/09/2021 12 :00:00 AM EDT TAWNYA (Jean Nagel MD [facility]) 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 Proble m 03/09/2021 12:00:00 AM EDT TAWNYA (Jean Nagel MD [facility]) 379.21 Vitreous Disorders Degeneration Vitreous Disorders Deg eneration Problem 03/09/2021 12:00:00 AM EDT TAWNYA (Jean Nagel MD [facility]) 375.15 Dry Eye Syndrome Dry Eye Syndrome Problem 03/09/2021 12 :00:00 AM EDT TAWNYA (Jean Nagel MD [facility]) 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 Proble m 03/09/2021 12:00:00 AM EDT TAWNYA (Jean Nagel MD [facility]) 379.21 Vitreous Disorders Degeneration Vitreous Disorders Deg eneration Problem 03/09/2021 12:00:00 AM EDT TAWNYA (Jean Nagel MD [facility]) 375.15 Dry Eye Syndrome Dry Eye Syndrome Problem 03/09/2021 12 :00:00 AM EDT TAWNYA (Jean Nagel MD [facility]) 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 Proble m 03/09/2021 12:00:00 AM EDT TAWNYA (Jean Nagel MD [facility]) 379.21 Vitreous Disorders Degeneration Vitreous Disorders Deg eneration Problem 03/09/2021 12:00:00 AM EDT TAWNYA (Jean Nagel MD [facility]) 375.15 Dry Eye Syndrome Dry Eye Syndrome Problem 03/09/2021 12 :00:00 AM EDT TAWNYA (Jean Nagel MD [facility]) 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 Proble m 03/09/2021 12:00:00 AM EDT TAWNYA (Jean Nagel MD [facility]) 379.21 Vitreous Disorders Degeneration Vitreous Disorders Deg eneration Problem 03/09/2021 12:00:00 AM EDT TAWNYA (Jean Nagel MD [facility]) 375.15 Dry Eye Syndrome Dry Eye Syndrome Problem 03/09/2021 12 :00:00 AM EDT TAWNYA (Jean Nagel MD [facility]) 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) E78.2 Mixed hyperlipidemia Mixed hyperlipidemia Problem 12/18/2020 12:00:00 AM EDT MEDENT ([facility]) Surgeries/Procedures Procedure Description Date Indications Data Source(s) Excise Benign Lesion 1.1-2CM Trunk/Arm/Leg 07/01/2021 12:00:00 AM EDT MEDENT ([facility], ) OFFICE OUTPATIENT VISIT 25 MINUTES 06/10/2021 12:00:00 AM EDT MEDENT ([facility], ) Extracapsular extraction of lens (procedure) History o f extracapsular cataract extraction PCIOL OS by Dr. Wood 03/19/2021 04/16/2021 12:00:00 AM EDT TAWNYA (Jean Nagel MD [facility]) Extracapsular extraction of lens (procedure) History o f extracapsular cataract extraction PCIOL OS by Dr. Wood 03/19/2021 03/26/2021 12:00:00 AM EDT TAWNYA (Jean Nagel MD [facility]) Extracapsular cataract removal with intraocular lens i mplant (Left side) Extracapsular cataract removal with intraocular lens implant (Left side) 03/19/2021 12:00:00 AM EDT TAWNYA (Jean greer MD [facility]) No surgical / procedural history No surgical / procedural hi story 03/12/2021 12:00:00 AM EDT TAWNYA (Jean Nagel MD [facility]) Intermediate Eye Exam Established Patient (Signi/Sep E juan a. & Man.) Intermediate Eye Exam Established Patient (Signi/Sep Eval. & Man.) 03/12/2021 12:00:00 AM EDT TAWNYA (Jean Nagel MD [facility]) OPH BMTRY PRTL COHER INTRFRMTRY IO LENS PWR SHELBI Ophtha lmic biometry - IOL Master with IOL calculation (Left side, WAIVER OF LIABILITY ON FILE (ABN)) 03/12/2021 12:00:00 AM EDT TAWNYA (Jean Nagel MD [facility]) OPH BMTRY PRTL COHER INTRFRMTRY IO LENS PWR SHELBI Ophtha lmic biometry - IOL Master with IOL calculation (TC, 26, LT, GA) 03/12/2021 12:00:00 AM EDT TAWNYA (eJan Nagel MD [facility]) Intermediate Eye Exam Established Patient (25) Interme diate Eye Exam Established Patient (25) 03/12/2021 12:00:00 AM EDT TAWNYA (Bryant Nagel MD [facility]) Medical Eye Exam Medical Eye Exam 03/09/2021 12:00:00 AM EDT TAWNYA (Jean Nagel MD [facility]) Medical Eye Exam Medical Eye Exam 03/09/2021 12:00:00 AM EDT TAWNYA (Jean Nagel MD [facility]) ECG ROUTINE ECG W/LEAST 12 LDS W/I&R 12/18/2020 12:00: 00 AM EDT MEDENT ([facility]) Results ID Date Data Source [id number] 07/01/2021 11:39:00 AM EDT MEDENT ([facility] ) Name Value Range Interpretation Code Description Data Vivi rce(s) Supporting Document(s) Surgical pathology study Laboratory test result MEDENT ([facility], ) FINAL DIAGNOSIS Mass, left upper arm, [...] OLIVERA MD 07/03/20211120 ID Date Data Source [id number] 06/13/2021 10:00:00 AM EDT [facility] Name Value Range Interpretation Code Description Data Vivi rce(s) Supporting Document(s) SARS-CoV-2 (COVID-19) RNA [Presence] in Respiratory specimen by MICHELLE with probe detection Not Detected [facility] This lab was ordered by [facility] and reported by [employer] ID Date Data Source [id number] 03/14/2021 09:15:00 AM EDT [facility] Name Value Range Interpretation Code Description Data Vivi rce(s) Supporting Document(s) SARS-CoV-2 (COVID-19) RNA [Presence] in Respiratory specimen by MICHELLE with probe detection Not Detected [facility] This lab was ordered by [facility] and reported by [employer] ID Date Data Source LIPID PANEL (CARDIAC RISK) 03/10/2021 12:00:00 AM EDT eCW1 ( [facility]) Name Value Range Interpretation Code Description Data Vivi rce(s) Supporting Document(s) Cholesterol [Moles/volume] in Serum or Plasma 168 <200 CHOLESTEROL LEVEL eCW1 ([facility]) Triglyceride [Mass/volume] in Serum or Plasma by calculation 80 <150 TRIGLYCERIDES LEVEL eCW1 ([facility]) 3.230 <5 CHOLESTEROL RISK RATIO eCW1 ([facility]) Cholesterol in HDL [Moles/volume] in Serum or Plasma 52 >40 HDL CHOLESTEROL eCW1 ([facility]) 116 NON-HDL-C eCW1 ([facility]) Cholesterol in LDL [Mass/volume] in Serum or Plasma by calculation 100 <100 LDL CHOLESTEROL eCW1 ([facility]) ID Date Data Source FREE T4 & TSH PANEL 03/10/2021 12:00:00 AM EDT eCW1 ([facility]) Name Value Range Interpretation Code Description Data Vivi rce(s) Supporting Document(s) 1.05 0.76-1.46 FREE T4 eCW1 ([facility]) 2.940 0.358-3.740 THYROID STIMULATING HORM ONE eCW1 ([facility]) ID Date Data Source Comprehensive Metabolic Profile (CMP) 03/10/2021 12:00:00 AM EDT eCW1 ([facility]) Name Value Range Interpretation Code Description Data Vivi rce(s) Supporting Document(s) 7 7-18 BLOOD UREA NITROGEN eCW1 ([facility]) 0.72 0.70-1.30 CREATININE FOR GFR eCW1 ([facility]) 96 70-100 GLUCOSE, FASTING eCW1 ([facility]) 4.3 3.5-5.1 POTASSIUM SERUM eCW1 (Critical access hospital) > 60.0 >49 GLOMERULAR FILTRATION RATE eCW 1 ([facility]) 135 136-145 SODIUM LEVEL eCW1 ([facility]) 9.8 8.8-10.2 CALCIUM LEVEL eCW1 ([facility]) 26 21-32 CARBON DIOXIDE LEVEL eCW1 ([facility]) 103 98-107 CHLORIDE LEVEL eCW1 ([facility]) 30 7-37 AST/SGOT eCW1 ([facility]) 7.5 6.4-8.2 TOTAL PROTEIN eCW1 ([facility]) 0.7 0.2-1.0 BILIRUBIN,TOTAL eCW1 (Critical access hospital) 64 45-117 ALKALINE PHOSPHATASE eCW1 ([facility]) 39 12-78 ALT/SGPT eCW1 ([facility]) 4.3 3.2-5.2 ALBUMIN eCW1 ([facility]) 1.3 ALBUMIN/GLOBULIN RATIO eCW1 ([facility]) ID Date Data Source CBC with Differential 03/10/2021 12:00:00 AM EDT eCW1 ([facility]) Name Value Range Interpretation Code Description Data Vivi rce(s) Supporting Document(s) 6.3 4.0-10.0 WHITE BLOOD COUNT eCW1 ([facility]) 16.8 13.5-17.5 HEMOGLOBIN eCW1 ([facility]) 5.13 4.30-6.10 RED BLOOD COUNT eCW1 (Critical access hospital) 32.7 27.0-33.0 MEAN CORPUSCULAR HEMOGLOB IN eCW1 ([facility]) 96.7 80.0-96.0 MEAN CORPUSCULAR VOLUME e CW1 ([facility]) 49.6 42.0-52.0 HEMATOCRIT eCW1 ([facility]) 53.4 36.0-66.0 NEUTROPHILS % eCW1 ([facility]) 33.9 32.0-36.5 MEAN CORPUSCULAR HGB CONC eCW1 ([facility]) 252 150-450 PLATELET COUNT, AUTOMATED eCW1 ([facility]) 14.0 11.5-14.5 RED CELL DISTRIBUTION WID TH eCW1 ([facility]) 8.1 2.0-8.0 MONO % eCW1 ([facility]) 2.7 0.0-3.0 EOS % eCW1 ([facility]) 1.4 0.0-1.0 BASO % eCW1 ([facility]) 34.2 24.0-44.0 LYMPH % eCW1 ([facility]) 0.5 0.0-0.8 MONO # eCW1 ([facility]) 2.2 1.5-5.0 LYMPH # eCW1 ([facility]) 3.4 1.5-8.5 NEUTROPHILS # eCW1 ([facility]) 0.1 0.0-0.2 BASO # eCW1 ([facility]) 0.2 0.0-0.5 EOS # eCW1 ([facility]) Procedure Social History Code Duration Value Status Description Data Source(s ) Smoking 06/08/2021 12:00:00 AM EDT Current Smoker completed Curre nt Smoker eCW1 ([facility]) Smoking 03/12/2021 08:29:30 AM EDT Smokes tobacco daily (findi ng) completed Smokes tobacco daily (finding) TAWNYA (Jean Nagel MD [facility]) Smoking 03/12/2021 08:26:41 AM EDT Smokes tobacco daily (findi ng) completed Smokes tobacco daily (finding) TAWNYA (Jean Nagel MD [facility]) Smoking 03/10/2021 12:00:00 AM EDT Current Smoker completed Curre nt Smoker eCW1 ([facility]) Smoking 03/10/2021 12:00:00 AM EDT Current Smoker completed Curre nt Smoker eCW1 ([facility]) Vital Signs ID Date Data Source UNK Name Value Range Interpretation Code Description Data Source(s) Body height 71 [in_i] 71 [in_i] [facility] ([facility]) 5'11" [place] body weight 172 [lb_av] 172 [lb_av] MEDEN T ([facility]) Body weight 75.751 kg 75.751 kg [facility] ([facility]) Body surface area Derived from formula 1.95 m2 1.95 m2 [facility] ([facility]) Body mass index (BMI) [Ratio] 23.3 kg/m2 23.3 k g/m2 [facility] ([facility]) Systolic blood pressure 171 mm[Hg] 171 mm[Hg] [facility] Diastolic blood pressure 96 mm[Hg] 96 mm[Hg] [facility] ([facility]) Body temperature 98.8 [degF] 98.8 [degF] [facility] ([facility]) Body weight 167.00 [lb_av] 167.00 [lb_av] MEDEN T ([facility]) Body weight 75.354 kg 75.354 kg [facility] ([facility]) Body mass index (BMI) [Ratio] 23.2 kg/m2 23.2 k g/m2 [facility] ([facility]) [place] body weight 172 [lb_av] 172 [lb_av] MEDEN T ([facility]) Systolic blood pressure 154 mm[Hg] 154 mm[Hg] [facility] Diastolic blood pressure 72 mm[Hg] 72 mm[Hg] [facility] ([facility]) Body temperature 98.5 [degF] 98.5 [degF] [facility] ([facility]) Body height 71 [in_i] 71 [in_i] [facility] ([facility]) 5'11" Body weight 166.12 [lb_av] 166.12 [lb_av] MEDEN T ([facility], ) Body surface area Derived from formula 1.95 m2 1.95 m2 MEDENT ([facility], ) Body weight 169.8 [lb_av] 169.8 [lb_av] eCW1 ([facility]) Body weight 77.02 kg 77.02 kg eCW1 ([facility]) Body height 71 [in_i] 71 [in_i] eCW1 ([facility]) Body mass index (BMI) [Ratio] 23.68 kg/m2 23.68 kg/m2 eCW1 ([facility]) Heart rate 59 /min 59 /min eCW1 (Critical access hospital) Respiratory rate 20 /min 20 /min eCW1 ([facility]) Body temperature 97.8 [degF] 97.8 [degF] eCW1 ( [facility]) Systolic blood pressure 130 mm[Hg] 130 mm[Hg] e CW1 ([facility]) Diastolic blood pressure 82 mm[Hg] 82 mm[Hg] eCW1 ([facility]) Body weight 167 [lb_av] 167 [lb_av] eCW1 ([facility]) Body height 71 [in_i] 71 [in_i] eCW1 ([facility]) Body mass index (BMI) [Ratio] 23.29 kg/m2 23.29 kg/m2 [facility]CW1 [facility] [facility] Heart rate 65 /min 65 /min eCW1 ([facility]) Respiratory rate 18 /min 18 /min eCW1 ([facility], [facility]) Body temperature 98.5 [degF] 98.5 [degF] eCW1 ( [facility]) Systolic blood pressure 132 mm[Hg] 132 mm[Hg] e CW1 ([facility]) Diastolic blood pressure 82 mm[Hg] 82 mm[Hg] eCW1 ([facility]) Systolic blood pressure--sitting 142 mm[Hg] 142 mm[Hg] AGUS ([facility]) Ra, large cuff Body weight 166.00 [lb_av] 166.00 [lb_av] SATINDER T ([facility]) Body height 70 [in_i] 70 [in_i] MEDGURMEET ([facility]) 5'10" Body mass index (BMI) [Ratio] 23.8 kg/m2 23.8 k g/m2 MEDGURMEET ([facility]) Heart rate 66 /min 66 /min MEDGURMEET ([facility]) Diastolic blood pressure--sitting 86 mm[Hg] 86 mm[Hg] MEDGURMEET ([facility]) Ra, large cuff Patient Treatment Plan of Care Planned Activity Planned Date Details Description Data Source (s) Inveltys 1% Ophthalmic Suspension 03/12/2021 12:00:00 AM EDT TAWNYA (Jean Nagel MD [facility]) BromSite 0.075% Ophthalmic Solution 03/12/2021 12:00:00 AM EDT TAWNYA (Jean Nagel MD [facility]) moxifloxacin 5 MG/ML Ophthalmic Solution 03/12/2021 12:00:00 AM EDT TAWNYA (Jean Nagel MD [facility])
[2021-07-27 15:49] LABS: BASO # 0.1 10^3/uL (0.0-0.2); BASO % 0.6 % (0.0-1.0); EOS % 0.1 % (0.0-3.0); HEMATOCRIT 45.4 % (42.0-52.0); HEMOGLOBIN 15.6 g/dl (13.5-17.5); LYMPH # 1.4 10^3/uL (1.5-5.0); LYMPH % 8.2 % (24.0-44.0); MEAN CORPUSCULAR HEMOGLOBIN 32.9 pg (27.0-33.0); MEAN CORPUSCULAR HGB CONC 34.4 g/dl (32.0-36.5); MEAN CORPUSCULAR VOLUME 95.8 fl (80.0-96.0); MONO # 0.7 10^3/uL (0.0-0.8); MONO % 3.7 % (2.0-8.0); NEUTROPHILS # 15.1 10^3/uL (1.5-8.5); NEUTROPHILS % 86.6 % (36.0-66.0); PLATELET COUNT, AUTOMATED 208 10^3/uL (150-450); RED BLOOD COUNT 4.74 10^6/uL (4.30-6.10); WHITE BLOOD COUNT 17.5 10^3/uL (4.0-10.0)
[2021-07-27] MEDS ORDERED: NS 1,000 ML IV ONE (15:50)
[2021-07-27 16:02] LABS: INR 1.13
[2021-07-27 16:03] LABS: PARTIAL THROMBOPLASTIN TIME 31.2 SECONDS (25.9-37.0)
[2021-07-27 16:22] LABS: ALBUMIN 3.7 GM/DL (3.2-5.2); ALT/SGPT 61 U/L (12-78); AMYLASE 44 U/L (25-115); BILIRUBIN,DIRECT 0.2 MG/DL (0.0-0.2); BILIRUBIN,TOTAL 0.5 MG/DL (0.2-1.0); BLOOD UREA NITROGEN 14 MG/DL (7-18); CALCIUM LEVEL 9.7 MG/DL (8.8-10.2); CARBON DIOXIDE LEVEL 22 MEQ/L (21-32); CHLORIDE LEVEL 103 MEQ/L (98-107); CK-MB VALUE MASS 28.7 NG/ML (<3.6); CPK CREATINE PHOSPHOKINASE 910 U/L (39-308); CREATININE FOR GFR 1.17 MG/DL (0.70-1.30); ETHYL ALCOHOL (ETHANOL) < 0.003 % (0.000-0.010); GLOMERULAR FILTRATION RATE > 60.0 (>49); GLUCOSE, FASTING 127 MG/DL (70-100); LIPASE 153 U/L (73-393); MB/CK RELATIVE INDEX 3.15 (< OR =4); POTASSIUM SERUM 4.2 MEQ/L (3.5-5.1); SODIUM LEVEL 135 MEQ/L (136-145); TOTAL PROTEIN 6.9 GM/DL (6.4-8.2); TROPONIN I < 0.02 NG/ML (< 0.10)
[2021-07-27 17:45] LABS: RSV AMPLIFICATION NEGATIVE (NEGATIVE)
[2021-07-27 18:23] VITALS: BP 144/89
== END 2021-07-27 18:28 | disposition short-term general hospital (02) ==
LOC: M ED 14:02
DX: S32.018A Other fracture of first lumbar vertebra, initial encounter for closed fracture (principal); S01.01XA Laceration without foreign body of scalp, initial encounter; S60.211A Contusion of right wrist, initial encounter; S51.812A Laceration without foreign body of left forearm, initial encounter; W17.89XA Other fall from one level to another, initial encounter; Y92.018 Other place in single-family (private) house as the place of occurrence of the external cause; I10 Essential (primary) hypertension; E78.5 Hyperlipidemia, unspecified; Z79.899 Other long term (current) drug therapy
CPT/HCPCS: 12002; 70450; 71045; 72125; 72128; 73110; 73502; 80048; 80076; 82077; 82150; 82550; 82553; 83605; 83690; 84484; 85025; 85610; 85730; 86850; 86900; 86901; 87631; 90471; 90715; 93041; 94760; 96374; 96375; 96376; 99285; J2270; J2405

== ENCOUNTER → 2021-11-28 | Outpatient (CLI) | payer SELFPAY | LOC: M LABSMTC 09:47 | PROVIDERS: ATTEND Pediatrics | DX: Z20.822 Contact with and (suspected) exposure to COVID-19 (principal) ==

== ENCOUNTER → 2022-03-10 | Outpatient (REF) | payer MEDICARE ==
[2022-03-10 12:06] LABS: BASO # 0.1 10^3/uL (0.0-0.2); BASO % 1.3 % (0.0-1.0); EOS # 0.2 10^3/uL (0.0-0.5); EOS % 2.5 % (0.0-3.0); HEMATOCRIT 51.4 % (42.0-52.0); HEMOGLOBIN 17.7 g/dl (13.5-17.5); LYMPH # 2.3 10^3/uL (1.5-5.0); LYMPH % 31.7 % (24.0-44.0); MEAN CORPUSCULAR HEMOGLOBIN 33.7 pg (27.0-33.0); MEAN CORPUSCULAR HGB CONC 34.4 g/dl (32.0-36.5); MEAN CORPUSCULAR VOLUME 97.7 fl (80.0-96.0); MONO # 0.6 10^3/uL (0.0-0.8); MONO % 8.2 % (2.0-8.0); PLATELET COUNT, AUTOMATED 271 10^3/uL (150-450); RED BLOOD COUNT 5.26 10^6/uL (4.30-6.10); WHITE BLOOD COUNT 7.2 10^3/uL (4.0-10.0)
[2022-03-10 12:38] LABS: CREATININE, URINE 31.9 MG/DL; MALB URINE SIEMENS 7.1 MG/L; MAU/CREAT RATIO 22.2 MCG/MG (0.0-30.0)
[2022-03-10 12:40] LABS: ALBUMIN 4.3 GM/DL (3.2-5.2); ALT/SGPT 28 U/L (12-78); BILIRUBIN,TOTAL 0.6 MG/DL (0.2-1.0); BLOOD UREA NITROGEN 7 MG/DL (7-18); CALCIUM LEVEL 10.2 MG/DL (8.8-10.2); CARBON DIOXIDE LEVEL 28 MEQ/L (21-32); CHLORIDE LEVEL 99 MEQ/L (98-107); CHOLESTEROL LEVEL 212 MG/DL (<200); CHOLESTEROL RISK RATIO 3.365 (<5); CREATININE FOR GFR 0.84 MG/DL (0.70-1.30); FREE T4 0.97 NG/DL (0.76-1.46); GLOMERULAR FILTRATION RATE > 60.0 (>49); GLUCOSE, FASTING 94 MG/DL (70-100); HDL CHOLESTEROL 63 MG/DL (>40); LDL CHOLESTEROL 128 MG/DL (<100); NON-HDL-C 149 MG/DL; POTASSIUM SERUM 4.7 MEQ/L (3.5-5.1); SODIUM LEVEL 134 MEQ/L (136-145); TOTAL PROTEIN 7.7 GM/DL (6.4-8.2); TRIGLYCERIDES LEVEL 104 MG/DL (<150)
== END ==
LOC: M SFHCCLAY 07:43
PROVIDERS: ATTEND Nurse Practitioner Family
DX: Z00.00 Encounter for general adult medical examination without abnormal findings (principal); I10 Essential (primary) hypertension; F17.200 Nicotine dependence, unspecified, uncomplicated; E78.49 Other hyperlipidemia

== ENCOUNTER → 2022-03-22 | Outpatient (CLI) | payer MEDICARE | LOC: M RAD 12:49 | PROVIDERS: ATTEND Nurse Practitioner Family | DX: N43.3 Hydrocele, unspecified (principal); N50.812 Left testicular pain ==

== ENCOUNTER → 2022-07-23 | Outpatient (CLI) | payer MEDICARE | LOC: M RAD 09:32 | PROVIDERS: ATTEND Nurse Practitioner Family | DX: Z12.2 Encounter for screening for malignant neoplasm of respiratory organs (principal); F17.210 Nicotine dependence, cigarettes, uncomplicated; R91.1 Solitary pulmonary nodule ==

== ENCOUNTER → 2023-02-10 | Outpatient (REF) | payer MEDICARE ==
[2023-02-10 18:37] LABS: BASO # 0.1 10^3/uL (0.0-0.2); BASO % 0.9 % (0.0-1.0); EOS # 0.1 10^3/uL (0.0-0.5); EOS % 1.2 % (0.0-3.0); HEMOGLOBIN 17.1 g/dl (13.5-17.5); LYMPH # 2.3 10^3/uL (1.5-5.0); LYMPH % 29.7 % (24.0-44.0); MEAN CORPUSCULAR HEMOGLOBIN 33.3 pg (27.0-33.0); MEAN CORPUSCULAR HGB CONC 34.2 g/dl (32.0-36.5); MEAN CORPUSCULAR VOLUME 97.3 fl (80.0-96.0); MONO # 0.6 10^3/uL (0.0-0.8); MONO % 7.3 % (2.0-8.0); NEUTROPHILS # 4.6 10^3/uL (1.5-8.5); NEUTROPHILS % 60.8 % (36.0-66.0); PLATELET COUNT, AUTOMATED 245 10^3/uL (150-450); RED BLOOD COUNT 5.14 10^6/uL (4.30-6.10); WHITE BLOOD COUNT 7.6 10^3/uL (4.0-10.0)
[2023-02-10 19:03] LABS: ALBUMIN 4.2 G/DL (3.2-5.2); ALKALINE PHOSPHATASE 67 U/L (46-116); ALT/SGPT 24 U/L (7.0-40); AST/SGOT 27 U/L (<34); BILIRUBIN,TOTAL 0.5 MG/DL (0.3-1.2); BLOOD UREA NITROGEN 13 MG/DL (9-23); CALCIUM LEVEL 9.6 MG/DL (8.3-10.6); CARBON DIOXIDE LEVEL 31 MMOL/L (20-31); CHLORIDE LEVEL 103 MMOL/L (98-107); CREATININE FOR GFR 0.78 MG/DL (0.70-1.30); GLOMERULAR FILTRATION RATE > 60.0 (>42); GLUCOSE, FASTING 80 MG/DL (74-106); POTASSIUM SERUM 4.1 MMOL/L (3.5-5.1); SODIUM LEVEL 137 MMOL/L (136-145); TOTAL PROTEIN 7.2 G/DL (5.7-8.2)
== END ==
LOC: M LABDRAWC 17:19
PROVIDERS: ATTEND Internal Medicine Cardiovascular Disease
DX: E78.5 Hyperlipidemia, unspecified (principal); I10 Essential (primary) hypertension; I63.9 Cerebral infarction, unspecified

== ENCOUNTER → 2023-07-07 | Outpatient (CLI) | payer MEDICARE ==
[2023-07-07 13:28] LABS: CHOLESTEROL RISK RATIO 2.58 (<5); HDL CHOLESTEROL 56.8 MG/DL (>40); LDL CHOLESTEROL 64.4 MG/DL (<100); NON-HDL-C 90.2 MG/DL
== END ==
LOC: M LAB 11:48
PROVIDERS: ATTEND Internal Medicine
DX: I25.10 Atherosclerotic heart disease of native coronary artery without angina pectoris (principal)

== ENCOUNTER → 2023-07-18 | Outpatient (CLI) | payer MEDICARE | LOC: M RAD 11:46 | PROVIDERS: ATTEND Physician Assistant | DX: I65.21 Occlusion and stenosis of right carotid artery (principal); Z48.812 Encounter for surgical aftercare following surgery on the circulatory system ==

== ENCOUNTER → 2023-07-21 | Outpatient (CLI) | payer MEDICARE | LOC: M PAIN 13:00 | PROVIDERS: ATTEND Nurse Practitioner Family | DX: M51.16 Intervertebral disc disorders with radiculopathy, lumbar region (principal); E78.5 Hyperlipidemia, unspecified; I10 Essential (primary) hypertension; F17.210 Nicotine dependence, cigarettes, uncomplicated; Z86.73 Personal history of transient ischemic attack (TIA), and cerebral infarction without residual deficits; Z79.82 Long term (current) use of aspirin; Z79.01 Long term (current) use of anticoagulants; Z79.899 Other long term (current) drug therapy ==

== ENCOUNTER → 2023-08-11 | Outpatient (CLI) | payer MEDICARE | LOC: M PLARAD 13:09 | PROVIDERS: ATTEND Nurse Practitioner Family | DX: M51.16 Intervertebral disc disorders with radiculopathy, lumbar region (principal); M48.061 Spinal stenosis, lumbar region without neurogenic claudication ==

== ENCOUNTER → 2023-08-26 | Outpatient (CLI) | payer MEDICARE | LOC: M PAIN 11:15 | PROVIDERS: ATTEND Nurse Practitioner Family | DX: M53.3 Sacrococcygeal disorders, not elsewhere classified (principal); M51.16 Intervertebral disc disorders with radiculopathy, lumbar region; G89.29 Other chronic pain; F17.210 Nicotine dependence, cigarettes, uncomplicated; M16.0 Bilateral primary osteoarthritis of hip; Z79.01 Long term (current) use of anticoagulants; Z79.82 Long term (current) use of aspirin; Z79.899 Other long term (current) drug therapy | CPT/HCPCS: 72190; G0463 ==

== ENCOUNTER → 2023-08-26 | Outpatient (CLI) | payer MEDICARE | LOC: M RAD 12:20 | PROVIDERS: ATTEND Nurse Practitioner Family | DX: M53.3 Sacrococcygeal disorders, not elsewhere classified (principal); M16.0 Bilateral primary osteoarthritis of hip ==

== ENCOUNTER → 2023-10-06 | Outpatient (CLI) | payer MEDICARE | LOC: M PAIN 11:45 | PROVIDERS: ATTEND Nurse Practitioner Family | DX: M46.1 Sacroiliitis, not elsewhere classified (principal); G89.29 Other chronic pain; Z87.891 Personal history of nicotine dependence; Z79.01 Long term (current) use of anticoagulants; Z79.82 Long term (current) use of aspirin; Z79.899 Other long term (current) drug therapy ==

== ENCOUNTER → 2023-10-13 | Outpatient (CLI) | payer MEDICARE ==
[~2023-10-13] MED LIST changes: +ASPI-655 PO; +ELIQ5TAB PO; +ISOVUE-M 300 61% 15ML VIAL As Ordered ONE; +LIDOCAINE 1% SDV 30ML VIAL As Ordered ONE; +LOSA50TA5 PO; +MM S100C PO; +THERTAB52 PO; +TRIAMCINOLONE ACETONIDE SUSP 40MG/ML 1ML VIAL As Ordered ONE; +VITA-243 PO
== END ==
LOC: M PAIN 11:00
PROVIDERS: ATTEND Anesthesiology
DX: M46.1 Sacroiliitis, not elsewhere classified (principal); E78.5 Hyperlipidemia, unspecified; I10 Essential (primary) hypertension; Z86.73 Personal history of transient ischemic attack (TIA), and cerebral infarction without residual deficits; Z87.891 Personal history of nicotine dependence; Z79.82 Long term (current) use of aspirin; Z79.01 Long term (current) use of anticoagulants
CPT/HCPCS: G0260; J0665; J3301; Q9967

== ENCOUNTER 2023-10-27 07:41 | Day surgery (SDC) | payer MEDICARE ==
[~2023-10-27] VITALS: Ht 177.8 cm; Wt 72.6 kg
[~2023-10-27 07:41] MED LIST changes: -ISOVUE-M 300 61% 15ML VIAL As Ordered ONE; -LIDOCAINE 1% SDV 30ML VIAL As Ordered ONE; -TRIAMCINOLONE ACETONIDE SUSP 40MG/ML 1ML VIAL As Ordered ONE
[2023-10-27] MEDS: NS 1,000 ML IV ONE (07:55)
[2023-10-27] MEDS ORDERED: propofoL 200 MG/20 ML VIAL As Ordered ONE (09:04)
[2023-10-27] MEDS ORDERED: PHENYLephrine 500MCG 5ML (100MCG/ML) SYRINGE As Ordered ONE (09:41)
[2023-10-27 10:23] VITALS: BP 104/61; O2SAT 97
== END 2023-10-27 10:46 | disposition home or self-care (01) ==
LOC: M OPP 07:41
PROVIDERS: ATTEND Internal Medicine Gastroenterology
DX: Z86.010 Personal history of colon polyps (principal); D12.2 Benign neoplasm of ascending colon; D12.4 Benign neoplasm of descending colon; K57.30 Diverticulosis of large intestine without perforation or abscess without bleeding; K64.8 Other hemorrhoids; Z79.01 Long term (current) use of anticoagulants; Z79.02 Long term (current) use of antithrombotics/antiplatelets; Z79.82 Long term (current) use of aspirin; Z79.899 Other long term (current) drug therapy
CPT/HCPCS: 45385; 88305; J2371

== ENCOUNTER → 2023-11-16 | Outpatient (CLI) | payer MEDICARE | LOC: M RAD 08:45 | PROVIDERS: ATTEND Nurse Practitioner Family | DX: Z12.2 Encounter for screening for malignant neoplasm of respiratory organs (principal); F17.210 Nicotine dependence, cigarettes, uncomplicated ==

== ENCOUNTER → 2024-08-02 | Outpatient (REF) | payer MEDICARE, OTHER | LOC: M SFHCCLAY 17:41 | PROVIDERS: ATTEND Physician Assistant | DX: C44.629 Squamous cell carcinoma of skin of left upper limb, including shoulder (principal) ==

== ENCOUNTER → 2024-08-30 | Outpatient (REF) | payer OTHER | LOC: M SFHCDERM 17:20 | PROVIDERS: ATTEND Physician Assistant | DX: C44.629 Squamous cell carcinoma of skin of left upper limb, including shoulder (principal) ==

== ENCOUNTER → 2024-09-03 | Outpatient (REF) | payer OTHER ==
[2024-09-03 12:16] LABS: BASO # 0.1 10^3/uL (0.0-0.2); BASO % 1.1 % (0.0-1.0); EOS # 0.2 10^3/uL (0.0-0.5); EOS % 2.6 % (0.0-3.0); HEMATOCRIT 47.3 % (42.0-52.0); HEMOGLOBIN 16.2 g/dl (13.5-17.5); LYMPH # 1.8 10^3/uL (1.5-5.0); LYMPH % 27.8 % (24.0-44.0); MEAN CORPUSCULAR HEMOGLOBIN 32.5 pg (27.0-33.0); MEAN CORPUSCULAR HGB CONC 34.2 g/dl (32.0-36.5); MONO # 0.5 10^3/uL (0.0-0.8); MONO % 8.1 % (2.0-8.0); NEUTROPHILS # 3.9 10^3/uL (1.5-8.5); NEUTROPHILS % 60.1 % (36.0-66.0); PLATELET COUNT, AUTOMATED 259 10^3/uL (150-450); RED BLOOD COUNT 4.98 10^6/uL (4.30-6.10); WHITE BLOOD COUNT 6.4 10^3/uL (4.0-10.0)
[2024-09-03 12:21] LABS: ALKALINE PHOSPHATASE 64 U/L (40-129); ALT/SGPT 21 U/L (7.0-40); AST/SGOT 22 U/L (<34); BILIRUBIN,TOTAL 0.6 MG/DL (0.3-1.2); BLOOD UREA NITROGEN 9 MG/DL (9-23); CALCIUM LEVEL 9.7 MG/DL (8.3-10.6); CARBON DIOXIDE LEVEL 26 MMOL/L (20-31); CHLORIDE LEVEL 102 MMOL/L (98-107); CHOLESTEROL LEVEL 190 MG/DL (<200); CHOLESTEROL RISK RATIO 3.38 (<5); CREATININE FOR GFR 0.63 MG/DL (0.70-1.30); GLOMERULAR FILTRATION RATE > 60.0 (>42); GLUCOSE, FASTING 93 MG/DL (74-106); HDL CHOLESTEROL 56.2 MG/DL (>40); LDL CHOLESTEROL 120.6 MG/DL (<100); MAGNESIUM LEVEL 1.9 MG/DL (1.8-2.4); NON-HDL-C 133.8 MG/DL; POTASSIUM SERUM 4.2 MMOL/L (3.5-5.1); PSA SCREENING 1.04 NG/ML (< 4.00); SODIUM LEVEL 135 MMOL/L (136-145); TOTAL PROTEIN 7.6 G/DL (5.7-8.2); TRIGLYCERIDES LEVEL 66 MG/DL (<150)
[2024-09-03 12:22] LABS: FREE T4 1.18 NG/DL (0.89-1.76)
[2024-09-03 13:02] LABS: HEMOGLOBIN A1c 5.2 % (4.0-6.0)
== END ==
LOC: M SFHCCLAY 08:14
PROVIDERS: ATTEND Nurse Practitioner Family
DX: Z00.00 Encounter for general adult medical examination without abnormal findings (principal); I10 Essential (primary) hypertension; M48.062 Spinal stenosis, lumbar region with neurogenic claudication; I63.539 Cerebral infarction due to unspecified occlusion or stenosis of unspecified posterior cerebral artery; F17.200 Nicotine dependence, unspecified, uncomplicated; E78.49 Other hyperlipidemia; I25.10 Atherosclerotic heart disease of native coronary artery without angina pectoris; I25.84 Coronary atherosclerosis due to calcified coronary lesion; Z28.21 Immunization not carried out because of patient refusal; Z12.5 Encounter for screening for malignant neoplasm of prostate; Z79.899 Other long term (current) drug therapy
CPT/HCPCS: 80053; 80061; 83036; 83735; 84439; 84443; 85025; G0103

== ENCOUNTER → 2024-11-26 | Outpatient (CLI) | payer MEDICARE, OTHER | LOC: M RAD 14:28 | PROVIDERS: ATTEND Nurse Practitioner Family | DX: Z12.2 Encounter for screening for malignant neoplasm of respiratory organs (principal); F17.210 Nicotine dependence, cigarettes, uncomplicated ==

== ENCOUNTER → 2025-01-18 | Outpatient (REF) | payer MEDICARE ==
[2025-01-18 15:29] LABS: HEMOGLOBIN A1c 5.4 % (4.0-6.0)
[2025-01-18 15:39] LABS: FOLATE > 24.0 NG/ML (>5.4)
[2025-01-18 15:40] LABS: VITAMIN B12 LEVEL 558 PG/ML (211-911)
[2025-01-20 06:13] LABS: T P ELECTROPHORESIS SO 7.4 g/dL (6.1-8.1)
== END ==
LOC: M LABDRAWC 12:31
PROVIDERS: ATTEND Psychiatry & Neurology Neurology
DX: E11.9 Type 2 diabetes mellitus without complications (principal); G60.9 Hereditary and idiopathic neuropathy, unspecified; D51.9 Vitamin B12 deficiency anemia, unspecified; E51.9 Thiamine deficiency, unspecified; E53.1 Pyridoxine deficiency; E56.0 Deficiency of vitamin E

== ENCOUNTER → 2025-09-16 | Outpatient (REF) | payer MEDICARE ==
[~2025-09-16] MED LIST changes: -ASPI-655 PO; +ASPI-737 PO
[2025-09-16 12:37] LABS: BASO # 0.1 10^3/uL (0.0-0.2); BASO % 0.7 % (0.0-1.0); EOS # 0.2 10^3/uL (0.0-0.5); EOS % 1.8 % (0.0-3.0); LYMPH # 2.0 10^3/uL (1.5-5.0); LYMPH % 20.9 % (24.0-44.0); MONO # 0.8 10^3/uL (0.0-0.8); MONO % 7.9 % (2.0-8.0); NEUTROPHILS # 6.6 10^3/uL (1.5-8.5); NEUTROPHILS % 68.3 % (36.0-66.0); PLATELET COUNT, AUTOMATED 301 10^3/uL (150-450)
[2025-09-16 12:52] LABS: ESTIMATED AVERAGE GLUCOSE 105.0 MG/DL (60-110)
[2025-09-16 13:03] LABS: CREATININE, URINE 133.4 MG/DL; MALB URINE SIEMENS 5.0 MG/L; MAU/CREAT RATIO 3.7 MCG/MG (0.0-30.0)
[2025-09-16 13:07] LABS: ALT/SGPT 18 U/L (7.0-40); AST/SGOT 23 U/L (<34); CALCIUM LEVEL 9.8 MG/DL (8.3-10.6); CARBON DIOXIDE LEVEL 29 MMOL/L (20-31); CHLORIDE LEVEL 101 MMOL/L (98-107); CHOLESTEROL LEVEL 170 MG/DL (<200); CHOLESTEROL RISK RATIO 3.53 (<5); CREATININE FOR GFR 0.74 MG/DL (0.70-1.30); GLOMERULAR FILTRATION RATE > 90.0 (>42); LDL CHOLESTEROL 101.1 MG/DL (<100); MAGNESIUM LEVEL 1.8 MG/DL (1.8-2.4); NON-HDL-C 121.9 MG/DL; POTASSIUM SERUM 4.2 MMOL/L (3.5-5.1); PSA SCREENING 1.19 NG/ML (< 4.00); SODIUM LEVEL 137 MMOL/L (136-145); TRIGLYCERIDES LEVEL 104 MG/DL (<150)
[2025-09-16 13:10] LABS: FREE T4 1.29 NG/DL (0.89-1.76)
== END ==
LOC: M SFHCCLAY 07:36
PROVIDERS: ATTEND Nurse Practitioner Family
DX: Z00.00 Encounter for general adult medical examination without abnormal findings (principal); I10 Essential (primary) hypertension; M48.062 Spinal stenosis, lumbar region with neurogenic claudication; I63.539 Cerebral infarction due to unspecified occlusion or stenosis of unspecified posterior cerebral artery; F17.200 Nicotine dependence, unspecified, uncomplicated; E78.49 Other hyperlipidemia; I25.10 Atherosclerotic heart disease of native coronary artery without angina pectoris; I25.84 Coronary atherosclerosis due to calcified coronary lesion; Z12.5 Encounter for screening for malignant neoplasm of prostate; Z79.899 Other long term (current) drug therapy